=== PATIENT | female | born 1955 | race Caucasian/White ===

== ENCOUNTER 2018-04-25 20:15 | Inpatient (IN) | payer MEDICARE, OTHER ==
[2018-04-25] MEDS ORDERED: ACETAMINOPHEN TAB 500 MG TAB PO STA (20:31)
--- NOTE | 2018-04-25 21:07 | ED ---
Neuro HPI - General Chief Complaint: Neuro Symptoms/Deficit Stated Complaint: Stroke symtoms Time Seen by Provider: 04/25/18 20:30 Source: patient Mode of arrival: wheelchair Limitations: no limitations - History of Present Illness Is the patient presenting with stroke symptoms?: Yes Last Known Well Date: 04/24/18 Last Known Well Time: 20:00 Onset/Timin -: days(s) Initial Comments: Is a 63-year-old female who presents emergency department for left-sided weakness and vision changes. She states that last night around 8 PM she fell and that is when she first noticed the symptoms. She states that she has left upper and lower extremity weakness and also numbness. She states that she also can't see out of the left side of her visual field. She states the symptoms have been persistent throughout today so she decided come emergency department for evaluation. The patient does admit to a mild headache as well. She denies any nausea or vomiting. No slurred speech or difficulty with swallowing. States that she does not have a history of stroke. She states that she has a history of hypertension however is untreated. She is a smoker. No other acute complaints. - Related Data Home Medications: Home Medications Medication Instructions Recorded Confirmed No Known Home Medications 04/25/18 04/25/18 Allergies/Adverse Reactions: Allergies Allergy/AdvReac Type Severity Reaction Status Date / Time Sulfa (Sulfonamide Allergy Unknown Verified 04/25/18 20:52 Antibiotics) Review of Systems ROS Statement: Those systems with pertinent positive or pertinent negative responses have been documented in the HPI. ROS Other: All systems not noted in ROS Statement are negative. General Exam - General Exam Comments Initial Comments: Constitutional: Awake alert Appears comfortable Head: Normocephalic atraumatic Eyes: no conjunctival injection No scleral icterus EOMI, pupils are 4 mm reactive bilaterally, the patient has a left-sided hemianopsia Neck: No JVD Supple Heart: Regular rate rhythm normal S1-S2 no murmurs Lungs: Clear to auscultation bilaterally No wheezing No rales Abdomen: Soft nondistended nontender Extremities: Non edematous DP pulses intact Radial pulses intact Neuro: A&Ox3, left-sided hemianopsia, the rest of her cranial nerves are grossly intact, 2 out of 5 strength in left upper extremity and 3-4-5 strength in left lower chrie, 5 out of 5 strength in upper and lower right extremity. Decreased sensation reported to left upper and lower extremity, there does appear to be some ataxia with finger to nose and heel to edouard testing however this could be due to weakness Psych: Appropriate mood and affect Limitations: no limitations Stroke MDM - Lab Data Result diagrams: 04/25/18 20:20 04/25/18 20:20 Lab Results 04/25/18 04/25/18 04/25/18 Range/Units 20:20 20:20 20:20 WBC 8.4 (3.8-10.6) k/uL RBC 4.76 (3.80-5.40) m/uL Hgb 14.2 (11.4-16.0) gm/dL Hct 43.5 (34.0-46.0) % MCV 91.4 (80.0-100.0) fL MCH 29.9 (25.0-35.0) pg MCHC 32.7 (31.0-37.0) g/dL RDW 13.1 (11.5-15.5) % Plt Count 215 (150-450) k/uL Neutrophils % 52 % Lymphocytes % 37 % Monocytes % 7 % Eosinophils % 2 % Basophils % 0 % Neutrophils # 4.4 (1.3-7.7) k/uL Lymphocytes # 3.1 (1.0-4.8) k/uL Monocytes # 0.6 (0-1.0) k/uL Eosinophils # 0.2 (0-0.7) k/uL Basophils # 0.0 (0-0.2) k/uL PT (9.0-12.0) sec INR (<1.2) APTT (22.0-30.0) sec Sodium 140 (137-145) mmol/L Potassium 5.1 (3.5-5.1) mmol/L Chloride 112 H (98-107) mmol/L Carbon Dioxide 17 L (22-30) mmol/L Anion Gap 11 mmol/L BUN 17 (7-17) mg/dL Creatinine 1.10 H (0.52-1.04) mg/dL Est GFR (CKD-EPI)AfAm 61 (>60 ml/min/1.73 sqM) Est GFR (CKD-EPI)NonAf 53 (>60 ml/min/1.73 sqM) Glucose 107 H (74-99) mg/dL Calcium 9.7 (8.4-10.2) mg/dL Total Bilirubin 0.9 (0.2-1.3) mg/dL AST 22 (14-36) U/L ALT 27 (9-52) U/L Alkaline Phosphatase 78 (38-126) U/L Total Creatine Kinase 52 (30-135) U/L CK-MB (CK-2) 0.3 (0.0-2.4) ng/mL CK-MB (CK-2) Rel Index 0.6 Troponin I <0.012 (0.000-0.034) ng/mL Total Protein 7.2 (6.3-8.2) g/dL Albumin 4.4 (3.5-5.0) g/dL 04/25/18 Range/Units 20:20 WBC (3.8-10.6) k/uL RBC (3.80-5.40) m/uL Hgb (11.4-16.0) gm/dL Hct (34.0-46.0) % MCV (80.0-100.0) fL MCH (25.0-35.0) pg MCHC (31.0-37.0) g/dL RDW (11.5-15.5) % Plt Count (150-450) k/uL Neutrophils % % Lymphocytes % % Monocytes % % Eosinophils % % Basophils % % Neutrophils # (1.3-7.7) k/uL Lymphocytes # (1.0-4.8) k/uL Monocytes # (0-1.0) k/uL Eosinophils # (0-0.7) k/uL Basophils # (0-0.2) k/uL PT 9.5 (9.0-12.0) sec INR 1.0 (<1.2) APTT 18.7 L (22.0-30.0) sec Sodium (137-145) mmol/L Potassium (3.5-5.1) mmol/L Chloride (98-107) mmol/L Carbon Dioxide (22-30) mmol/L Anion Gap mmol/L BUN (7-17) mg/dL Creatinine (0.52-1.04) mg/dL Est GFR (CKD-EPI)AfAm (>60 ml/min/1.73 sqM) Est GFR (CKD-EPI)NonAf (>60 ml/min/1.73 sqM) Glucose (74-99) mg/dL Calcium (8.4-10.2) mg/dL Total Bilirubin (0.2-1.3) mg/dL AST (14-36) U/L ALT (9-52) U/L Alkaline Phosphatase (38-126) U/L Total Creatine Kinase (30-135) U/L CK-MB (CK-2) (0.0-2.4) ng/mL CK-MB (CK-2) Rel Index Troponin I (0.000-0.034) ng/mL Total Protein (6.3-8.2) g/dL Albumin (3.5-5.0) g/dL - NIH Stroke Scale 1a. Level of Consciousness: (0) alert 1b. LOC Questions: (0) answers correctly 1c. LOC Commands: (0) performs tasks correctly 2. Best Gaze: (0) normal 3. Visual: (2) complete hemianopia 4. Facial Palsy: (0) normal symmetrical movement 5a. Motor Arm Left: (2) some gravity effort 5b. Motor Arm Right: (0) no drift 6a. Motor Leg Left: (1) drift 6b. Motor Leg Right: (0) no drift 7. Limb Ataxia: (2) present 2 limbs 8. Sensory: (1) mild/moderate sensory loss 9. Best Language: (0) no aphasia 10. Dysarthria: (0) normal 11. Extinction/Inattention: (0) no abnormality NIH Score total: 8 - Thrombolytic Inclusion/Exclusion Thrombolytic Exclusion Criteria: Symptom Onset > 3 Hours - Medical Decision Making This is a 63-year-old female who presents emergency department for left-sided hemianopsia and left-sided weakness. The patient was found to have an infarct in the right posterior cerebral artery territory. The patient was outside the window for TPA as the last known normal was last night at 8 PM. No evidence for large vessel occlusion and CTA. Patient will be admitted for further workup. Patient was given aspirin emergency department. Dr. Carrillo accepts the admission. Past Medical History Past Medical History: Hypertension History of Any Multi-Drug Resistant Organisms: None Reported Past Surgical History: No Surgical Hx Reported Past Psychological History: No Psychological Hx Reported Smoking Status: Current every day smoker Past Alcohol Use History: None Reported Past Drug Use History: None Reported Course Vital Signs 04/25/18 20:38 Temperature 98.3 F Pulse Rate 92 Respiratory 18 Rate Blood Pressure 153/77 O2 Sat by Pulse 97 Oximetry - Reevaluation(s) Reevaluation #1: 04/25/18 21:08 EKG showing normal sinus rhythm with a rate of 91. No abnormal ST segment changes or T-wave inversions. QTC is 484. Other intervals normal. No ectopy. Disposition Clinical Impression: Acute ischemic stroke Disposition: ADMITTED IP TO THIS HOSP Condition: Stable
[2018-04-25 21:18] LABS: Basophils % (A) 0 %; Eosinophils # (A) 0.2 k/uL (0-0.7); Eosinophils % (A) 2 %; HCT 43.5 % (34.0-46.0); HGB 14.2 gm/dL (11.4-16.0); Lymphocytes # (A) 3.1 k/uL (1.0-4.8); Lymphocytes % (A) 37 %; MCH 29.9 pg (25.0-35.0); MCHC 32.7 g/dL (31.0-37.0); MCV 91.4 fL (80.0-100.0); Mean Platelet Volume 10.5; Monocytes # (A) 0.6 k/uL (0-1.0); Monocytes % (A) 7 %; Neutrophils # (A) 4.4 k/uL (1.3-7.7); Neutrophils % (A) 52 %; Platelet Count 215 k/uL (150-450); RBC 4.76 m/uL (3.80-5.40); RDW 13.1 % (11.5-15.5); WBC 8.4 k/uL (3.8-10.6)
[2018-04-25 21:29] LABS: Albumin 4.4 g/dL (3.5-5.0); Calcium 9.7 mg/dL (8.4-10.2); Potassium 5.1 mmol/L (3.5-5.1); Total Bilirubin 0.9 mg/dL (0.2-1.3); Total Protein 7.2 g/dL (6.3-8.2)
[2018-04-25 21:31] LABS: Creatine Kinase 52 U/L (30-135)
[2018-04-25 21:33] LABS: Prothrombin Time 9.5 sec (9.0-12.0)
[2018-04-25 21:44] LABS: Creatine Kinase MB 0.3 ng/mL (0.0-2.4); Troponin I <0.012 ng/mL (0.000-0.034)
[2018-04-25 21:59] LABS: Partial Thromboplastin Time 18.7 sec (22.0-30.0)
[2018-04-25] MEDS ORDERED: ASPIRIN 81 MG PO STA (22:07)
--- NOTE | 2018-04-25 22:25 | CT ---
EXAMINATION TYPE: CT brain wo con DATE OF EXAM: 04/25/2018 COMPARISON: None HISTORY: Left sided weakness and headache since yesterday. CT DLP: 1017.5 mGycm Automated exposure control for dose reduction was used. FINDINGS: There is a 5 x 3 cm area of davis and white matter hypodensity involving the right occipital lobe exte nding into the right temporal lobe consistent with subacute infarct. There is no mass effect. There i s no midline shift. There is no sign of intracranial hemorrhage. The calvarium is intact. IMPRESSION: EVIDENCE OF A SUBACUTE RIGHT POSTERIOR CEREBRAL ARTERY DISTRIBUTION INFARCT. NO HEMORRHAGE.
--- NOTE | 2018-04-25 22:52 | CT ---
EXAMINATION TYPE: CT angio head neck DATE OF EXAM: 04/25/2018 HISTORY: Left sided weakness and headache since yesterday. COMPARISON: CT scan of the left knee. CT DLP: 270.2 mGycm. Automated Exposure Control for Dose Reduction was Utilized. TECHNIQUE: CTA scan of the neck is performed with IV Contrast, patient injected with 65ml mL of Isov ue 370, axial images are obtained, coronal and sagittal reformatted images are reviewed. Three-D joanna nstructed images are created on an independent workstation and reviewed. FINDINGS: There is normal branching pattern of the great vessels on the aortic arch. Left vertebral artery has origin on the arch. Right vertebral artery is larger than the left. There is arterial flow in the com mon internal and external carotid arteries bilaterally. Carotid artery bifurcations appear widely pat ent. There is no evidence of carotid stenosis. There is no evidence of carotid artery aneurysm or dissection. There is arterial flow in the intracra nial internal carotid arteries bilaterally. There is arterial flow in the vertebrobasilar artery syst em. There is arterial flow in the anterior and middle cerebral arteries. There is no mass effect. The re is no evidence of stenosis. There is decreased distal arterial flow in the right posterior cerebral artery compared to the left. There is normal contrast opacification of the venous sinuses. There is no evidence of aneurysm or eleni vascularity. IMPRESSION: Negative CT angiogram of the neck. There is noted a 2 cm cystic area in the right thyroid lobe. The intracranial exam shows decreased arterial distal flow in the right posterior cerebral artery in the area of the posterior cerebral artery cortical infarct seen on the CT scan today..
--- NOTE | 2018-04-25 23:06 | XR ---
EXAMINATION TYPE: XR chest 2V DATE OF EXAM: 04/25/2018 COMPARISON: NONE HISTORY: Weakness TECHNIQUE: Frontal and lateral views of the chest are obtained. FINDINGS: Heart and mediastinum are normal. Lungs are clear. Diaphragm is normal. Bony thorax is int act. There are chest leads. IMPRESSION: No active cardiopulmonary disease.
[2018-04-25 23:51] VITALS: BMI 25.8
[2018-04-25 23:51] LABS: Cholesterol 238 mg/dL (<200); HDL Cholesterol 45 mg/dL (40-60); LDL Cholesterol,Calculated 167 mg/dL (0-99); Triglycerides 132 mg/dL (<150)
--- NOTE | 2018-04-26 00:04 | P.HPIM ---
History of Present Illness H&P Date: 04/25/18 Chief Complaint: Fall and left-sided weakness This is a 63-year-old female without significant past medical history and no regular follow-ups. Patient came to emergency department this evening with complaint of sudden fall the day prior to the admission. Patient states that she was sitting and watching her computer and felt all of a sudden her left leg to be numb. She tried to get up and stretch it up but felt too weak and felt down on the right side. She notices some vision changes in form of vision being hazy and not sharp and then felt that the left arm and left leg numb but has difficulties moving. She denied any headache, nausea, dizziness. Since she hoped that this is going to go away she did not seek immediate medical attention. Next day since she was still feeling weak on the left side and not able to get up she called her granddaughter who brought her to emergency department. Initial CT of the head showed acute right occipital ischemic CVA. Since patient presented more than 24 hours after onset of symptoms no number with tics or intervention was indicated and she was now admitted for further evaluation. She also had CTA of the head and neck did not show any significant stenosis except mild stenosis in the distal part of right cerebral artery. No dissection or aneurysms noted. Patient's symptoms stayed about the same. She did not notice any improvement or worsening. She did have mild headache that resolved with Tylenol. She does not take aspirin. She does not take any medications and does not have any regular follow-up since physician. She smokes about a pack a day. Review of Systems Constitutional: Reports as per HPI Eyes: bilateral as per HPI, bilateral blurred vision Ears, nose, mouth and throat: Reports headache, Denies vertigo Cardiovascular: Reports high blood pressure, Denies chest pain, Denies dyspnea on exertion, Denies edema, Denies palpitations, Denies syncope Respiratory: Denies congestion, Denies cough, Denies dyspnea Gastrointestinal: Denies abdominal pain, Denies change in bowel habits, Denies diarrhea, Denies nausea, Denies vomiting Genitourinary: Denies difficulty voiding, Denies hematuria Musculoskeletal: Reports as per HPI Neurological: Reports as per HPI Psychiatric: Denies anxiety, Denies depression Endocrine: Denies cold intolerance, Denies heat intolerance Hematologic/Lymphatic: Denies easy bleeding Past Medical History Past Medical History: Hypertension History of Any Multi-Drug Resistant Organisms: None Reported Past Surgical History: No Surgical Hx Reported Past Psychological History: No Psychological Hx Reported Smoking Status: Current every day smoker Past Alcohol Use History: None Reported Past Drug Use History: None Reported Medications and Allergies Home Medications Medication Instructions Recorded Confirmed Type No Known Home Medications 04/25/18 04/25/18 History Allergies Allergy/AdvReac Type Severity Reaction Status Date / Time Sulfa (Sulfonamide Allergy Unknown Verified 04/25/18 20:52 Antibiotics) Physical Exam Vitals: Vital Signs Temp Pulse Pulse Resp BP BP Pulse Ox 04/25/18 22:30 97.7 F 62 18 171/79 99 04/25/18 21:33 97.8 F 70 18 166/83 99 04/25/18 20:38 98.3 F 92 18 153/77 97 Intake and Output 04/25/18 04/25/18 04/26/18 14:59 22:59 06:59 Other: Weight 74.8 kg - Constitutional General appearance: cooperative, no acute distress - EENT Eyes: EOMI, PERRLA ENT: no hard of hearing, normal oropharynx, no pharyngeal erythema - Neck Neck: normal ROM - Respiratory Respiratory: bilateral: CTA - Cardiovascular Heart sounds: normal: S1, S2 - Gastrointestinal General gastrointestinal: normal bowel sounds, no organomegaly, no tenderness - Neurologic Left-sided hemiparesis with decreased sensitivity to touch. No clonus or Babinski in the left foot. She has left-sided neglect and ideation to her right Neurologic: focal deficits - Musculoskeletal Musculoskeletal: left sided weakness - Psychiatric Psychiatric: A&O x's 3, appropriate affect, intact judgment & insight Results CBC & Chem 7: 04/25/18 20:20 04/25/18 20:20 Labs: Abnormal Lab Results - Last 24 Hours (Table) 04/25/18 04/25/18 Range/Units 20:20 20:20 APTT 18.7 L (22.0-30.0) sec Chloride 112 H (98-107) mmol/L Carbon Dioxide 17 L (22-30) mmol/L Creatinine 1.10 H (0.52-1.04) mg/dL Glucose 107 H (74-99) mg/dL Assessment and Plan Assessment: 1. Acute ischemic CVA Patient will need formal admission for 2 or more midnightsCVA pathway Neurology consultation Physical and occupational and PMNR consultation Swallowing evaluation Aspirin and statin CT head and neck done Echocardiogram ordered Rule out thromboembolic disease will be monitored on telemetry while in the hospital and may consider having loop recorder an outpatient basis Check A1c and lipid panel Smoking cessation Blood pressure control 2. Elevated blood pressure This could be due to stress or sarah hypertension No treatment for now and continue to monitor 3. Elevated creatinine with hyperchloremic metabolic acidosis Rule out acute or chronic kidney injury We'll obtain urinalysis Repeat creatinine the morning Consider further workup Will need admission 2 or more midnights Patient is a full code Surrogate decision-maker is her granddaughter who is present in the room during the examination Time with Patient: Greater than 30
[2018-04-26] MEDS: HEPARIN SODIUM,PORCINE 5,000 UNIT/ML 1 ML VIAL SQ SCH ×4 (00:30→23:05)
[2018-04-26 03:58] LABS: Appearance,Urine Clear (Clear); Bacteria,Urine Occasional /hpf; Bilirubin,Urine Negative (Negative); Blood,Urine Negative (Negative); Color,Urine Yellow; Glucose,Urine (UA) Negative (Negative); Ketones,Urine Negative (Negative); Leukocyte Esterase,Urine Large (Negative); Mucus,Urine Occasional /hpf; Nitrite,Urine Positive (Negative); PH, Urine 5.5 (5.0-8.0); Protein,Urine 1+ (Negative); RBC,Urine 5 /hpf (0-5); Squamous Epithelial Cell,Urine 11 /hpf (0-4); Urobilinogen,Urine <2.0 mg/dL (<2.0); WBC,Urine 37 /hpf (0-5)
[2018-04-26 04:04] LABS: Specific Gravity,Urine >1.050 (1.001-1.035)
[2018-04-26] MEDS: ACETAMINOPHEN TAB 325 MG TAB PO PRN ×3 (04:08→18:12)
[2018-04-26 08:41] LABS: Calcium 9.2 mg/dL (8.4-10.2); Potassium 3.9 mmol/L (3.5-5.1)
--- NOTE | 2018-04-26 08:54 | ECHOF ---
Referral Reason:Thrombus MEASUREMENTS -------- HEIGHT: 167.6 cm WEIGHT: 76.2 kg BP: 138/68 RVIDd: 2.6 cm (< 3.3) IVSd: 1.2 cm (0.6 - 1.1) LVIDd: 3.5 cm (3.9 - 5.3) LVPWd: 1.0 cm (0.6 - 1.1) IVSs: 1.5 cm LVIDs: 2.4 cm LVPWs: 1.6 cm LA Diam: 3.0 cm (2.7 - 3.8) LAESV Index (A-L): 33.13 ml/m Ao Diam: 3.1 cm (2.0 - 3.7) AV Cusp: 2.0 cm (1.5 - 2.6) MV EXCURSION: 17.766 mm (> 18.000) MV EF SLOPE: 84 mm/s (70 - 150) EPSS: 0.5 cm MV E Car: 0.69 m/s MV DecT: 241 ms MV A Car: 0.77 m/s MV E/A Ratio: 0.90 RAP: 5.00 mmHg RVSP: 27.32 mmHg FINDINGS -------- Sinus rhythm. This was a technically good study. The left ventricular size is normal. There is borderline concentric left ventricular hypertrophy. Overall left ventricular systolic function is normal with, an EF between 60 - 65 %. The right ventricle is normal in size. LA is midly dilated 29-33ml/m2. The right atrium is normal in size. There is mild aortic valve sclerosis. The mitral valve is normal. Mild tricuspid regurgitation present. Right ventricular systolic pressure is normal at < 35 mmHg. Trace/mild (physiologic) pulmonic regurgitation. The aortic root size is normal. Normal inferior vena cava with normal inspiratory collapse consistent with estimated right atrial pre ssure of 5 mmHg. There is no pericardial effusion. CONCLUSIONS -------- 1. Sinus rhythm. 2. This was a technically good study. 3. The left ventricular size is normal. 4. There is borderline concentric left ventricular hypertrophy. 5. Overall left ventricular systolic function is normal with, an EF between 60 - 65 %. 6. The right ventricle is normal in size. 7. LA is midly dilated 29-33ml/m2. 8. The right atrium is normal in size. 9. There is mild aortic valve sclerosis. 10. The mitral valve is normal. 11. Mild tricuspid regurgitation present. 12. Right ventricular systolic pressure is normal at < 35 mmHg. 13. Trace/mild (physiologic) pulmonic regurgitation. 14. The aortic root size is normal. 15. Normal inferior vena cava with normal inspiratory collapse consistent with estimated right atrial pressure of 5 mmHg. 16. There is no pericardial effusion. PHARMACY CLINICAL COORDINATOR: Parris Rodgers RDCS
[2018-04-26] MEDS ORDERED: ASPIRIN 300 MG SUPP RECTAL SCH (09:00)
[2018-04-26] MEDS: ASPIRIN 325 MG TAB PO SCH (09:07)
--- NOTE | 2018-04-26 11:54 | P.PN ---
Subjective Progress Note Date: 04/26/18 Principal diagnosis: Stroke Patient is doing relatively well when I saw her this morning. She still complaining of some weakness on her left side. No residual neurological focal deficits otherwise. Objective - Vital Signs Vital signs: Vital Signs Temp 97.8 F 04/26/18 10:41 Pulse 70 04/26/18 10:41 Resp 17 04/26/18 10:41 BP 140/72 04/26/18 10:41 Pulse Ox 94 L 04/26/18 10:41 Intake & Output 04/25/18 04/26/18 04/26/18 18:59 06:59 18:59 Intake Total 600 120 Balance 600 120 Weight 76.5 kg Intake: Oral 600 120 Other: Voiding Method Bedpan Bedpan # Voids 1 - Exam General: The patient is awake and alert, in no distress Eye: there is normal conjunctiva bilaterally. Neck: The neck is supple, there is no JVD. Cardiovascular: Normal S1-S2, no S3-S4, no murmurs. Respiratory: Lungs clear to auscultation bilaterally Gastrointestinal: Abdomen is soft, nontender Musculoskeletal: There is no pedal edema. Neurological:. Speech is normal. Skin: Skin is warm and dry - Labs CBC & Chem 7: 04/25/18 20:20 04/26/18 08:20 Labs: Abnormal Lab Results - Last 24 Hours (Table) 04/25/18 04/25/18 04/25/18 Range/Units 03:30 20:20 20:20 APTT 18.7 L (22.0-30.0) sec Chloride 112 H (98-107) mmol/L Carbon Dioxide 17 L (22-30) mmol/L BUN (7-17) mg/dL Creatinine 1.10 H (0.52-1.04) mg/dL Glucose 107 H (74-99) mg/dL Cholesterol (<200) mg/dL LDL Cholesterol, Calc (0-99) mg/dL Ur Specific [place] >1.050 H (1.001-1.035) Urine Protein 1+ H (Negative) Urine Nitrite Positive H (Negative) Ur Leukocyte Esterase Large H (Negative) Urine WBC 37 H (0-5) /hpf Ur Squamous Epith Cells 11 H (0-4) /hpf Urine Bacteria Occasional H (None) /hpf Urine Mucus Occasional H (None) /hpf 04/25/18 04/26/18 Range/Units 20:20 08:20 APTT (22.0-30.0) sec Chloride 109 H (98-107) mmol/L Carbon Dioxide (22-30) mmol/L BUN 25 H (7-17) mg/dL Creatinine 1.10 H (0.52-1.04) mg/dL Glucose 114 H (74-99) mg/dL Cholesterol 238 H (<200) mg/dL LDL Cholesterol, Calc 167 H (0-99) mg/dL Ur Specific [place] (1.001-1.035) Urine Protein (Negative) Urine Nitrite (Negative) Ur Leukocyte Esterase (Negative) Urine WBC (0-5) /hpf Ur Squamous Epith Cells (0-4) /hpf Urine Bacteria (None) /hpf Urine Mucus (None) /hpf Assessment and Plan Assessment: 1. Subacute stroke involving the right stereo cerebral artery, patient was started on aspirin daily. Awaiting neurology evaluation. CT angiogram of the neck was unremarkable. Echocardiogram showed preserved ejection fraction and no valvular abnormalities. Patient started on Lipitor 80 mg daily. PT/OT/ speech pathology evaluation requested. A1c and TSH pending. We will continue telemetry monitoring. Neuro check. 2. Mixed hyperlipidemia, counseled regarding lifestyle modification and exercise. Started on Lipitor daily. Repeat fasting lipid profile in 3 months. 3. Tobacco abuse, counseled extensively to quit. She verbalized understanding. 4. Elevated blood pressure, no known history of hypertension. We'll continue to monitor for now. Consider starting hydrochlorothiazide is in the next day or 2 5. DVT prophylaxis with subcu heparin Today, I reviewed her medication list and lab work results. Awaiting neurology evaluation. May consider inpatient rehab if patient qualified. Patient was updated about her current condition. All of her questions answered to her satisfaction.
--- NOTE | 2018-04-26 12:05 | P.CONS ---
History of Present Illness - Chief Complaint Gait disturbance, left hemiplegia - History of Present Illness I had the opportunity to see patient for inpatient rehab consultation with regard to gait disturbance. She is admitted to [facility] April 25 with history of fall and left-sided weakness. Chest x-ray negative. Angiogram CT negative. Head CT demonstrates subacute infarct right posterior cerebral artery distribution. PT reports moderate assistance for bed mobility and minimal assist for transfers. OT and speech prescribed. Previous functional history as elicited patient: 63-year-old right-handed white female who is and lives in a first-floor apartment alone. Retired. Describes independent with own cooking, laundry, driving, standing shower and gait without device. Does not have regular PCP. Admits to smoking 15 cigarettes per day denies alcohol. Family history of hypertension and cancer in father. Review of Systems Review of systems: ENT: Denies sneezes or discharge. Eyes: Denies discharge or photophobia. Cardiac: Denies chest pain or palpitation. Pulmonary: Denies cough or shortness of breath. Breast: Denies discharge or lumps. Gastrointestinal: Denies nausea, emesis, constipation, diarrhea. Genitourinary: Denies discharge or frequency. Musculoskeletal: Denies muscle or bone aches. Neurologic: Sided weakness and numbness. Endocrine: Denies shakes or sweats. Oncology: Denies cancers. Dermatologic: Denies rash, itching, pruritus. ALLERGY/immunology: Denies sneezes, rashes. Past Medical History Past Medical History: Hypertension History of Any Multi-Drug Resistant Organisms: None Reported Past Surgical History: No Surgical Hx Reported Past Anesthesia/Blood Transfusion Reactions: No Reported Reaction Additional Past Anesthesia/Blood Transfusion Reaction / Comm: pt has never received either Past Psychological History: No Psychological Hx Reported Smoking Status: Current every day smoker Past Alcohol Use History: None Reported Past Drug Use History: None Reported - Past Family History Mother Family Medical History: Congestive Heart Failure (CHF), CVA/TIA Additional Family Medical History / Comment(s): Mother of CHF at the age of 83. Father Family Medical History: Cancer, CVA/TIA, Hypertension Additional Family Medical History / Comment(s): Pt's father at the age of 77, colon cancer. Medications and Allergies Home Medications Medication Instructions Recorded Confirmed Type No Known Home Medications 04/25/18 04/25/18 History Allergies Allergy/AdvReac Type Severity Reaction Status Date / Time Sulfa (Sulfonamide Allergy Unknown Verified 04/25/18 20:52 Antibiotics) Physical Exam Vitals: Vital Signs Temp Pulse Pulse Resp BP BP Pulse Ox 04/26/18 10:41 97.8 F 70 17 140/72 94 L 04/26/18 09:05 74 18 140/69 94 L 04/26/18 08:41 74 140/69 04/26/18 08:00 74 18 04/26/18 06:41 76 16 138/68 95 04/26/18 04:41 71 16 138/66 94 L 04/26/18 03:51 85 16 04/26/18 02:41 85 16 143/69 95 04/26/18 01:41 72 16 144/73 94 L 04/26/18 00:41 68 16 130/72 93 L 04/25/18 23:41 65 16 144/72 96 04/25/18 22:46 99.2 F 65 16 164/74 99 04/25/18 22:30 97.7 F 62 18 171/79 99 04/25/18 21:33 97.8 F 70 18 166/83 99 04/25/18 20:38 98.3 F 92 18 153/77 97 Intake and Output 04/25/18 04/26/18 04/26/18 22:59 06:59 14:59 Intake Total 600 120 Output Total 150 Balance 600 -30 Intake: Oral 600 120 Output: Urine 150 Other: Voiding Method Bedpan Bedpan # Voids 1 1 # Bowel Movements 0 Weight 72.575 kg 76.5 kg Skin: Good color, texture, turgor. General: Medium build and comfortable appearance. Head: Normocephalic, atraumatic. Eyes: Symmetric. Pupils equal round. Ears: Symmetric. Hearing within normal limits. Mouth: Clear. Neck: Supple. Carotid without bruit. Cardiac: Regular rate and rhythm. Lungs: Clear anteriorly and posteriorly. Abdomen: Soft active nontender. Extremities: Normal tone. Neurological: Mental status: Alert, cooperative, pleasant. Cranial nerves: Symmetric facial tone and trapezius. Motor: Normal strength and isolation right arm and leg. Left leg demonstrates active movement throughout and, in synergy predominant. Left arm and poor flexion synergy. Sensation: Intact right side and depressed left side, especially arm. DTRs: Symmetric and equal throughout. Mobility: Would require assistance for bed mobility. Results CBC & Chem 7: 04/25/18 20:20 04/26/18 08:20 Labs: Abnormal Lab Results - Last 24 Hours (Table) 04/25/18 04/25/18 04/25/18 Range/Units 03:30 20:20 20:20 APTT 18.7 L (22.0-30.0) sec Chloride 112 H (98-107) mmol/L Carbon Dioxide 17 L (22-30) mmol/L BUN (7-17) mg/dL Creatinine 1.10 H (0.52-1.04) mg/dL Glucose 107 H (74-99) mg/dL Cholesterol (<200) mg/dL LDL Cholesterol, Calc (0-99) mg/dL Ur Specific [place] >1.050 H (1.001-1.035) Urine Protein 1+ H (Negative) Urine Nitrite Positive H (Negative) Ur Leukocyte Esterase Large H (Negative) Urine WBC 37 H (0-5) /hpf Ur Squamous Epith Cells 11 H (0-4) /hpf Urine Bacteria Occasional H (None) /hpf Urine Mucus Occasional H (None) /hpf 04/25/18 04/26/18 Range/Units 20:20 08:20 APTT (22.0-30.0) sec Chloride 109 H (98-107) mmol/L Carbon Dioxide (22-30) mmol/L BUN 25 H (7-17) mg/dL Creatinine 1.10 H (0.52-1.04) mg/dL Glucose 114 H (74-99) mg/dL Cholesterol 238 H (<200) mg/dL LDL Cholesterol, Calc 167 H (0-99) mg/dL Ur Specific [place] (1.001-1.035) Urine Protein (Negative) Urine Nitrite (Negative) Ur Leukocyte Esterase (Negative) Urine WBC (0-5) /hpf Ur Squamous Epith Cells (0-4) /hpf Urine Bacteria (None) /hpf Urine Mucus (None) /hpf Chest x-ray: report reviewed (Chest x-ray negative.) CT Scan - head: report reviewed (Head CT with infarct subacute right ASSISTANT PURCHASING MANAGER. Angiogram CT negative.) Assessment and Plan (1) Acute ischemic stroke Current Visit: Yes Status: Acute Code(s): I63.9 - CEREBRAL INFARCTION, UNSPECIFIED SNOMED Code(s): 928129217 Plan: Patient: 1. Gait disturbance. 2. Acute right ASSISTANT PURCHASING MANAGER infarct resultant left magali-pierces. 3. Hypertension. Comments and plan: At this time PT, OT, SEAM TAPER MACHINE ordered. Discussed possibility of inpatient rehab with patient and she seems agreeable, if necessary. Note that she doesn't have regular physician and she also lives alone.
[2018-04-26] MEDS: SODIUM CHLORIDE 0.9% 1,000 ML IV SCH (17:13)
[2018-04-26] MEDS: ATORVASTATIN 80 MG TAB PO SCH (20:20)
--- NOTE | 2018-04-26 21:26 | CONS ---
CONSULTATION DATE OF CONSULTATION: 04/26/2018. CHIEF COMPLAINT: Stroke. HISTORY OF PRESENT ILLNESS: Mrs. Cuadra is a 63-year-old female who is being evaluated by the neurology service per the request of Dr. Seymour for a stroke. The patient was brought into [facility] Emergency Room after she noticed a sudden onset of left-sided numbness and visual deficits. The patient states that she was unable to see anything on the left side of her visual field. In the emergency room, a CT scan of the brain was done, which showed evidence of a subacute ischemic stroke involving right occipital lobe. A CT angiogram of the brain was done, which showed decreased flow through the right posterior cerebral artery. Her CT angiogram of the neck showed no significant stenosis, but there was an incidental finding of thyroid cysts. Her lipid panel showed dyslipidemia with an LDL of 167. The patient was started on aspirin and Lipitor and admitted for further workup and management. At the time of my evaluation, she is lying in her bed and appears to be in no acute distress. She denies any changes in her neurological symptoms. PAST MEDICAL HISTORY: Hypertension. SOCIAL HISTORY: The patient is a current every day smoker. She denies any alcohol or drug use. FAMILY HISTORY: Noncontributory. PAST SURGICAL HISTORY: None. HOME MEDICATIONS: Reviewed in the chart. ALLERGIES: No known drug allergies. REVIEW OF SYSTEMS: CONSTITUTIONAL: Negative. EYES: As mentioned above. ENT: Negative. CARDIOVASCULAR: Negative. RESPIRATORY: Negative. NEUROLOGICAL: As mentioned above. DERMATOLOGICAL: Negative. ENDOCRINE: Negative. PSYCHIATRIC: Negative. MUSCULOSKELETAL: Negative. PHYSICAL EXAM: Vital signs show a temperature of 97.3, pulse 72, respiration 18, blood pressure 138/64. GENERAL APPEARANCE: The patient is a female who appears to be in no acute distress. HEENT: Normocephalic, atraumatic. is seen. Neck is supple with no masses felt. CARDIOVASCULAR: Regular rate and rhythm. ABDOMEN: Nontender, nondistended. Extremities showed no edema or clubbing. NEUROLOGICAL: The patient is awake and oriented x3. Speech and language are normal. Strength is full in all 4 extremities. Sensory showed diminished light touch sensation on the left upper and lower extremities compared to the right. Cranial nerve testing showed a left visual field cut. No tremors or seizure-like activity is seen. IMPRESSION: 1. Acute ischemic stroke, right occipital lobe. 2. Left visual field cut. 3. Left-sided numbness. 4. Dyslipidemia. 5. Hypertension. 6. Tobacco dependence. RECOMMENDATION: The patient does appear to have suffered an acute ischemic stroke as mentioned above. She continues to have a left visual field cut consistent with her right occipital lobe stroke. On my examination, she does have a significant sensory deficit on the left side. There was concern for thalamic involvement, given the CT angiogram of the brain finding. For this reason, I will order an MRI of the brain without contrast. Continue aspirin and Lipitor. I will order an EEG and serum homocystine level. Continue IV hydration as tolerated. The patient was counseled on tobacco cessation. I do recommend further workup regarding her thyroid cysts as mentioned above. Thank you for allowing me to participate in the care of your patient. If you have any questions, please feel free to contact me. ILSA / CARSON: [id number] /
--- NOTE | 2018-04-26 22:26 | MR ---
EXAMINATION TYPE: MR brain wo con DATE OF EXAM: 04/26/2018 COMPARISON: Head CT scan yesterday HISTORY: Left side weakness, CVA Standard multiplanar, multisequence MRI departmental protocol Multiplanar, multisequence images of the brain were acquired. Diffusion weighted imaging was performe d. FINDINGS: There is a 9X5 cm area of increased signal on the T2 and FLAIR images involving the medial right occipital lobe extending into the right posterior temporal lobe and the posterior right thalamu s. This is consistent with subacute infarct. There is no midline shift. I see no underlying mass. The re is no evidence of intracranial hemorrhage. The brainstem appears intact. Corpus callosum appears n ormal. Sella turcica is normal. On the FLAIR images there are scattered white matter high signal foci in the subcortical region of eben th cerebral hemispheres. These measure up to 5 mm and total number is less than 10. IMPRESSION: Large subacute right posterior cerebral artery distribution infarct. No mass effect. White matter foci probably related to chronic small vessel ischemia. No change compared to CT scan ye day.
[2018-04-27] MEDS: ACETAMINOPHEN TAB 325 MG TAB PO PRN (00:33)
[2018-04-27] MEDS: SODIUM CHLORIDE 0.9% 1,000 ML IV SCH (01:38)
[2018-04-27] MEDS ORDERED: amLODIPine 5 MG TAB PO STA (04:05)
[2018-04-27 07:26] LABS: Calcium 9.8 mg/dL (8.4-10.2); Potassium 4.1 mmol/L (3.5-5.1)
[2018-04-27] MEDS: HEPARIN SODIUM,PORCINE 5,000 UNIT/ML 1 ML VIAL SQ SCH ×2 (07:38→15:27)
[2018-04-27] MEDS: ASPIRIN 325 MG TAB PO SCH (07:39)
[2018-04-27] MEDS ORDERED: ONDANSETRON 4 MG/2 ML VIAL IVP PRN (08:49)
--- NOTE | 2018-04-27 13:48 | P.PN ---
Subjective Progress Note Date: 04/27/18 Principal diagnosis: Stroke Patient is doing well today. No acute events overnight. Objective - Vital Signs Vital signs: Vital Signs Temp 97.6 F 04/27/18 07:42 Pulse 75 04/27/18 12:00 Resp 18 04/27/18 12:00 BP 117/69 04/27/18 12:00 Pulse Ox 95 04/27/18 12:00 Intake & Output 04/26/18 04/27/18 04/27/18 18:59 06:59 18:59 Intake Total 360 900 340 Output Total 150 150 Balance 210 900 190 Weight 75.5 kg Intake: Oral 360 900 340 Output: Urine 150 150 Other: Voiding Method Bedpan Bedpan Bedpan # Voids 1 1 1 # Bowel Movements 0 - Exam General: The patient is awake and alert, in no distress Eye: there is normal conjunctiva bilaterally. Neck: The neck is supple, there is no JVD. Cardiovascular: Normal S1-S2, no S3-S4, no murmurs. Respiratory: Lungs clear to auscultation bilaterally Gastrointestinal: Abdomen is soft, nontender Musculoskeletal: There is no pedal edema. Neurological:. Speech is normal. Skin: Skin is warm and dry - Labs CBC & Chem 7: 04/25/18 20:20 04/27/18 06:36 Labs: Abnormal Lab Results - Last 24 Hours (Table) 04/27/18 Range/Units 06:36 Chloride 111 H (98-107) mmol/L BUN 18 H (7-17) mg/dL Glucose 103 H (74-99) mg/dL Assessment and Plan Assessment: 1. Subacute stroke involving the right posterior cerebral artery/right occipital lobe noted on MRI of the brain, patient was started on aspirin daily. She was seen and evaluated by neurology. CT angiogram of the neck was unremarkable. Echocardiogram showed preserved ejection fraction and no valvular abnormalities. Patient started on Lipitor 80 mg daily. PT/OT/speech pathology evaluation requested. A1c and TSH within normal range. We will continue telemetry monitoring. 2. Mixed hyperlipidemia, counseled regarding lifestyle modification and exercise. Started on Lipitor daily. Repeat fasting lipid profile in 3 months. 3. Tobacco abuse, counseled extensively to quit. She verbalized understanding. 4. Elevated blood pressure, no known history of hypertension. Blood pressure remained elevated. I will start hydrochlorothiazide 12.5 mg daily. We'll continue to monitor for now. 5. DVT prophylaxis with subcu heparin Today, I reviewed her medication list and lab work results. Awaiting EEG to be done today. Patient was seen by physical medicine and plan to discharge tomorrow to inpatient rehab awaiting bed availability.
--- NOTE | 2018-04-27 15:09 | P.PN ---
Subjective Progress Note Date: 04/27/18 Principal diagnosis: Subacute stroke Neurology is following on a 63-year-old female for acute/subacute stroke. Patient was brought to the emergency room after sudden onset of left-sided numbness and visual deficits. Patient was unable to see anything on the left side of her visual field. CT of the brain was done which showed evidence of subacute ischemic stroke involving right occipital lobe. CT angiogram of the brain was done which noted decreased flow throughout the right posterior cerebral artery. CT angiogram of the neck showed significant stenosis but there was incidental finding of thyroid cysts. Lipid panel showed dyslipidemia with LDL of 167. Patient was started on aspirin and Lipitor in the ED and further workup ordered. Patient states today she is feeling approximately 10% improved. She states that she is able to see items on the wall including the clock but cannot differentiate the numbers clearly. She also states that her sensation of disequilibrium is also improved. Patient denies any other new onset neurological status changes. On contact, the patient was sitting in bedside chair, alert and oriented 3 and in no acute distress. Objective - Vital Signs Vital signs: Vital Signs Temp 97.6 F 04/27/18 07:42 Pulse 75 04/27/18 12:00 Resp 18 04/27/18 12:00 BP 117/69 04/27/18 12:00 Pulse Ox 95 04/27/18 12:00 Intake & Output 04/26/18 04/27/18 04/27/18 18:59 06:59 18:59 Intake Total 360 900 340 Output Total 150 150 Balance 210 900 190 Weight 75.5 kg Intake: Oral 360 900 340 Output: Urine 150 150 Other: Voiding Method Bedpan Bedpan Bedpan # Voids 1 1 1 # Bowel Movements 0 - Exam Gen. appearance: Alert, in no apparent distress Head: Atraumatic normocephalic, normal inspection Eyes: Well appearance, PERRL, EOMI. absent: Scleral icterus, conjunctival injection, nystagmus, periorbital swelling. Ear nose and throat: Normal exam, mucous membranes moist Neck: Normal inspection. Absent tenderness, lymphadenopathy Respiratory: No increased work of breathing. Cardiovascular: Regular rate and rhythm GI/abdominal: Nontender, no guarding Neurological: Awake, Alert and oriented 3, cranial nerves II through XII intact , strength is full in the right upper and lower extremity, left upper extremity 4/5, left lower extremity 4+/5, no seizure activity noted on physical exam. Psychological: Mood and affect appropriate setting - Labs CBC & Chem 7: 04/25/18 20:20 04/27/18 06:36 Labs: Abnormal Lab Results - Last 24 Hours (Table) 04/27/18 Range/Units 06:36 Chloride 111 H (98-107) mmol/L BUN 18 H (7-17) mg/dL Glucose 103 H (74-99) mg/dL Assessment and Plan (1) Acute ischemic stroke Current Visit: Yes Status: Acute Code(s): I63.9 - CEREBRAL INFARCTION, UNSPECIFIED SNOMED Code(s): 303511785 (2) Visual changes Current Visit: Yes Status: Acute Code(s): H53.9 - UNSPECIFIED VISUAL DISTURBANCE SNOMED Code(s): 253775773 (3) Left sided numbness Current Visit: Yes Status: Acute Code(s): R20.0 - ANESTHESIA OF SKIN SNOMED Code(s): 44689458 (4) Hyperlipidemia Current Visit: Yes Status: Acute Code(s): E78.5 - HYPERLIPIDEMIA, UNSPECIFIED SNOMED Code(s): 92200887 (5) Tobacco dependence Current Visit: Yes Status: Acute Code(s): F17.200 - NICOTINE DEPENDENCE, UNSPECIFIED, UNCOMPLICATED SNOMED Code(s): 16301692 Plan: 1. Subacute ischemic strokeright posterior cerebral artery, right occipital lobe. Patient does have physical exam findings as well as imaging documenting subacute stroke as noted above. Continue antiplatelet therapy with aspirin as previously [id number] mg daily Continue neuro checks as ordered Advise Neurology with any neurological status changes immediately Serum homocystine level pending Continue DVT prophylaxis EEG pending as noted below 2. Visual changes: Patient had left visual field cuts consistent with #1 above. Etiology likely related to #1 above. EEG pending 3. Left-sided numbness and weakness On physical exam, patient did have some left upper extremity weakness also consistent with #1 above. Consult/continue PT OT 4. Hyperlipidemia: Cholesterol 238 LDL 167 Continue Lipitor 80 mg by mouth daily at bedtime STATUS: Neurology will continue to follow and provide updates as needed or warranted. Feel free to contact our office with any questions. I discussed the patients history, physical exam, diagnostic testing, lab work and imaging with Dr Frye prior to implementing the plan above. He agrees with the plan as implemented prior to implementation.
[2018-04-27] MEDS: HYDROCHLOROTHIAZIDE 12.5 MG CAP PO SCH (15:29)
--- NOTE | 2018-04-27 18:53 | EEG ---
ELECTROENCEPHALOGRAM REPORT DATE OF SERVICE: 04/27/2018. REASON FOR TESTING: Stroke. DESCRIPTION OF THE PROCEDURE: This EEG was performed using a 21 channel digital electroencephalograph, following international 10-20 system. DESCRIPTION OF THE RECORDING: From the beginning of the tracing, and with patient's eyes closed, the background rhythm was mostly consisting of 9 Hz alpha frequency in the posterior occipital leads. No obvious asymmetry is seen. Photic stimulation was performed with a good driving response seen. No pathological waves were elicited. Hyperventilation was not performed. The patient does reach stage II of sleep during the tracing and occasional sleep spindles are seen. No epileptiform discharges were seen. Her EKG lead showed a regular rate and rhythm. INTERPRETATION: This asleep and awake EEG can be considered within normal limits. There was no asymmetry seen. No epileptiform discharges were noticed. The absence of epileptiform discharges does not rule out the diagnosis of epilepsy; therefore, clinical correlation is recommended. MMSUSAN / IJN: [id number] /
[2018-04-27] MEDS: ATORVASTATIN 80 MG TAB PO SCH (21:20)
[2018-04-28] MEDS ORDERED: HEPARIN SODIUM,PORCINE 5,000 UNIT/ML 1 ML VIAL ONE (00:18)
[2018-04-28] MEDS: HEPARIN SODIUM,PORCINE 5,000 UNIT/ML 1 ML VIAL SQ SCH ×2 (04:37→08:23)
[2018-04-28 06:41] LABS: Calcium 9.5 mg/dL (8.4-10.2); Potassium 4.2 mmol/L (3.5-5.1)
[2018-04-28] MEDS: HYDROCHLOROTHIAZIDE 12.5 MG CAP PO SCH (08:23)
[2018-04-28] MEDS: ASPIRIN 325 MG TAB PO SCH (08:23)
[2018-04-28 10:10] VITALS: RESP 18
--- NOTE | 2018-04-28 11:47 | P.DS ---
Providers Date of admission: 04/25/18 22:32 Expected date of discharge: 04/28/18 Attending physician: Sylvester Seymour MD Consults: 04/26/18 08:53 Consult Physician Urgent Consulting Provider: Robert Frye Consult Reason/Comments: CVA Do you want consulting provider notified?: Yes 04/26/18 10:44 Consult Physician Routine Consulting Provider: Jovon Kang Consult Reason/Comments: eval for inpatient rehab Do you want consulting provider notified?: Yes Primary care physician: Stated None Hospital Course: 1. Subacute stroke involving the right posterior cerebral artery/right occipital lobe noted on MRI of the brain, patient was started on aspirin daily. She was seen and evaluated by neurology. CT angiogram of the neck was unremarkable. Echocardiogram showed preserved ejection fraction and no valvular abnormalities. Patient started on Lipitor 80 mg daily. Evaluated by PT/OT/speech pathology. A1c and TSH within normal range. EEG was normal 2. Mixed hyperlipidemia, counseled regarding lifestyle modification and exercise. Started on Lipitor daily. Repeat fasting lipid profile in 3 months. 3. Tobacco abuse, counseled extensively to quit. She verbalized understanding. 4. Elevated blood pressure, no known history of hypertension. Blood pressure remained elevated. Started on hydrochlorothiazide 12.5 mg daily. 5. Thyroid cyst, noted on CTs angiogram of the neck. Thyroid function tests within normal range. Consider follow-up as an outpatient with ultrasound 6.Physical debility: Continue physical therapy as tolerated with residual left- sided weakness secondary to recent stroke. Plan to discharge to inpatient rehab at [facility] Patient Condition at Discharge: Stable Plan - Discharge Summary Discharge Rx Participant: No New Discharge Prescriptions: New Aspirin 325 mg PO DAILY #30 tab Atorvastatin [Lipitor] 80 mg PO HS #30 tab Hydrochlorothiazide [Hydrodiuril] 12.5 mg PO DAILY #30 cap Discharge Medication List Aspirin 325 mg PO DAILY #30 tab 04/28/18 [Rx] Atorvastatin [Lipitor] 80 mg PO HS #30 tab 04/28/18 [Rx] Hydrochlorothiazide [Hydrodiuril] 12.5 mg PO DAILY #30 cap 04/28/18 [Rx] Follow up Appointment(s)/Referral(s): Robert Frye MD [STAFF PHYSICIAN] - 2 Weeks Discharge Disposition: TRANSFER TO SNF/ECF
[2018-04-28 12:22] VITALS: BP 135/72; PULSE 65; TEMP 98
--- NOTE | 2018-05-01 10:03 | CDI ---
Documentation Clarification Form Date: 05/01/2018 12:00:00 AM From: MARIA L Caballero; Mora Terry Marketing And Public Relations Manager Phone: If you have a question about this query, please contact Mora Terry Marketing And Public Relations Manager at [phone] between 8am and 5pm. Admit Date: 04/25/2018 10:32:00 PM Patient Name: Mora Cuadra Visit Number: [id number] Discharge Date: 04/28/2018 ATTENTION: The Clinical Documentation Specialists (CDI) and [facility] Coding Staff appreciate your assistance in clarifying documentation. Please respond to the clarification below the line at the bottom and electronically sign. The CDI & [facility] Coding staff will review the response and follow-up if needed. Please note: Queries are made part of the Legal Health Record. If you have any questions, please contact the author of this message via ITS. Dr. Sylvester Seyomur History/Risk Factors: Presented with CVA. Documentation on H&P is rule out acute or chronic kidney injury. Current BUN/CR/GFR: 17, 1.10, 61 Discharge: BUN/CR/GFR: 16, 0.94, 74 In your professional option, please clarify? Acute kidney injury ruled in Acute kidney injury ruled out Chronic kidney injury ruled in Chronic kidney injury ruled out If chronic, please clarify stage: CKD Stage 1 (GFR > 90) CKD Stage 2 (GFR 60-89) CKD Stage 3 (GFR 30-59) CKD Stage 4 (GFR 15-29) CKD Stage 5 (GFR <15) ESRD Other, please specify Unable to determine _Unable to determine MTDD
== END 2018-04-28 14:50 | DRG 65 ==
LOC: EC 20:15 → 6SEL 22:32
PROVIDERS: ADMIT Hospitalist; ATTEND Hospitalist
DX: I63.531 Cerebral infarction due to unspecified occlusion or stenosis of right posterior cerebral artery (principal); E87.2 Acidosis; G81.94 Hemiplegia, unspecified affecting left nondominant side; E04.1 Nontoxic single thyroid nodule; E78.2 Mixed hyperlipidemia; F17.210 Nicotine dependence, cigarettes, uncomplicated; H53.40 Unspecified visual field defects; I10 Essential (primary) hypertension; Z80.0 Family history of malignant neoplasm of digestive organs; Z82.49 Family history of ischemic heart disease and other diseases of the circulatory system; R29.709 NIHSS score 9; Z88.2 Allergy status to sulfonamides; Z71.6 Tobacco abuse counseling
CPT/HCPCS: 36415; 70450; 70496; 70498; 70551; 71046; 80048; 80053; 80061; 81001; 82550; 82553; 83036; 83090; 84443; 84484; 85025; 85610; 85730; 93005; 93306; 95819; 99285

== ENCOUNTER 2019-10-22 00:40 | Emergency (ER) | payer MEDICARE, OTHER ==
[2019-10-22 00:55] VITALS: RESP 18; TEMP 98
[2019-10-22] MEDS ORDERED: SODIUM CHLORIDE 0.9% 1,000 ML IV STA ×2 (01:01→02:16)
--- NOTE | 2019-10-22 01:13 | ED ---
Dizziness HPI - General Chief Complaint: Dizziness Stated Complaint: Hypertension Time Seen by Provider: 10/22/19 00:48 Source: patient, EMS, RN notes reviewed, old records reviewed Mode of arrival: EMS Limitations: no limitations - History of Present Illness Initial Comments: This is a 64-year-old female presents today for evaluation of weakness. Not feeling well, patient states she has been off balance, she is on a diuretic and has been having some alcohol abuse.. No pain or shortness of breath no complaints. Otherwise no acute disease medications. Aside from dizziness patient feels weak and dehydrated no fevers no chest pain or source of breath no abdominal pain. No nausea vomiting or diarrhea MD Complaint: dizziness, lightheadedness -: days(s) Timing: gradual onset Description: lightheadedness History of Same: Yes History of Trauma: No Severity: moderate Improves With: rehydration, rest Worsens With: movement, exertion Associated Symptoms: loss of appetite, weakness - Related Data Previous Rx's Medication Instructions Recorded Aspirin 325 mg PO DAILY #30 tab 04/28/18 Atorvastatin [Lipitor] 80 mg PO HS #30 tab 04/28/18 Hydrochlorothiazide [Hydrodiuril] 12.5 mg PO DAILY #30 cap 04/28/18 Allergies Allergy/AdvReac Type Severity Reaction Status Date / Time Sulfa (Sulfonamide Allergy Unknown Verified 10/22/19 00:55 Antibiotics) Review of Systems ROS Statement: Those systems with pertinent positive or pertinent negative responses have been documented in the HPI. ROS Other: All systems not noted in ROS Statement are negative. Past Medical History Past Medical History: Hypertension Additional Past Medical History / Comment(s): CVA 2018 History of Any Multi-Drug Resistant Organisms: None Reported Past Surgical History: No Surgical Hx Reported Past Anesthesia/Blood Transfusion Reactions: No Reported Reaction Additional Past Anesthesia/Blood Transfusion Reaction / Comment(s): pt has never received either Past Psychological History: No Psychological Hx Reported Smoking Status: Current every day smoker Past Alcohol Use History: None Reported, Rare Past Drug Use History: None Reported - Past Family History Mother Family Medical History: Congestive Heart Failure (CHF), CVA/TIA Additional Family Medical History / Comment(s): Mother of CHF at the age of 83. Father Family Medical History: Cancer, CVA/TIA, Hypertension Additional Family Medical History / Comment(s): Pt's father at the age of 77, colon cancer. General Exam Limitations: no limitations General appearance: alert, in no apparent distress Head exam: Present: atraumatic, normocephalic, normal inspection Eye exam: Present: normal appearance, PERRL, EOMI. Absent: scleral icterus, conjunctival injection, periorbital swelling ENT exam: Present: normal exam, mucous membranes dry Neck exam: Present: normal inspection. Absent: tenderness, meningismus, lymphadenopathy Respiratory exam: Present: normal lung sounds bilaterally. Absent: respiratory distress, wheezes, rales, rhonchi, stridor Cardiovascular Exam: Present: regular rate, normal rhythm, normal heart sounds. Absent: systolic murmur, diastolic murmur, rubs, gallop, clicks GI/Abdominal exam: Present: soft, normal bowel sounds. Absent: distended, tenderness, guarding, rebound, rigid Extremities exam: Present: normal inspection, full ROM, normal capillary refill. Absent: tenderness, pedal edema, joint swelling, calf tenderness Back exam: Present: normal inspection Neurological exam: Present: alert, oriented X3, CN II-XII intact Psychiatric exam: Present: normal affect, normal mood Skin exam: Present: warm, dry, intact, normal color. Absent: rash Course Vital Signs 10/22/19 10/22/19 00:42 02:32 Temperature 98 F Pulse Rate 80 78 Respiratory 18 18 Rate Blood Pressure 162/86 150/87 O2 Sat by Pulse 95 98 Oximetry - Reevaluation(s) Reevaluation #1: Medical records reviewed Patient's no acute distress no pain symptoms significantly improved currently able to eat and drink EKG Findings - EKG Comments: EKG Findings:: EKG shows sinus rhythm of 68, GA 148, QRS 74, QTC 480 Medical Decision Making - Medical Decision Making 64 female here with history of alcohol abuse severe dehydration feeling better with hydration and symptomatic management here in the ER labwork otherwise unremarkable and patient can be discharged home - Lab Data Result diagrams: 10/22/19 01:05 10/22/19 01:05 Lab Results 10/22/19 10/22/19 10/22/19 Range/Units 01:05 01:05 01:05 WBC 8.3 (3.8-10.6) k/uL RBC 4.07 (3.80-5.40) m/uL Hgb 13.3 (11.4-16.0) gm/dL Hct 38.8 (34.0-46.0) % MCV 95.1 (80.0-100.0) fL MCH 32.6 (25.0-35.0) pg MCHC 34.3 (31.0-37.0) g/dL RDW 12.1 (11.5-15.5) % Plt Count 168 (150-450) k/uL Neutrophils % 53 % Lymphocytes % 37 % Monocytes % 5 % Eosinophils % 3 % Basophils % 1 % Neutrophils # 4.5 (1.3-7.7) k/uL Lymphocytes # 3.1 (1.0-4.8) k/uL Monocytes # 0.4 (0-1.0) k/uL Eosinophils # 0.2 (0-0.7) k/uL Basophils # 0.0 (0-0.2) k/uL Manual Slide Review Performed Large Platelets Present Sodium 135 L (137-145) mmol/L Potassium 3.2 L (3.5-5.1) mmol/L Chloride 101 (98-107) mmol/L Carbon Dioxide 26 (22-30) mmol/L Anion Gap 8 mmol/L BUN 29 H (7-17) mg/dL Creatinine 0.95 (0.52-1.04) mg/dL Est GFR (CKD-EPI)AfAm 73 (>60 ml/min/1.73 sqM) Est GFR (CKD-EPI)NonAf 63 (>60 ml/min/1.73 sqM) Glucose 96 (74-99) mg/dL Calcium 9.0 (8.4-10.2) mg/dL Phosphorus 3.4 (2.5-4.5) mg/dL Magnesium 2.0 (1.6-2.3) mg/dL Total Bilirubin 0.6 (0.2-1.3) mg/dL AST 27 (14-36) U/L ALT 22 (4-34) U/L Alkaline Phosphatase 73 (38-126) U/L Creatine Kinase 44 (30-135) U/L Troponin I <0.012 (0.000-0.034) ng/mL Total Protein 6.7 (6.3-8.2) g/dL Albumin 4.1 (3.5-5.0) g/dL TSH 0.813 (0.465-4.680) mIU/L Urine Color Urine Appearance (Clear) Urine pH (5.0-8.0) Ur Specific [place] (1.001-1.035) Urine Protein (Negative) Urine Glucose (UA) (Negative) Urine Ketones (Negative) Urine Blood (Negative) Urine Nitrite (Negative) Urine Bilirubin (Negative) Urine Urobilinogen (<2.0) mg/dL Ur Leukocyte Esterase (Negative) 10/22/19 Range/Units 02:27 WBC (3.8-10.6) k/uL RBC (3.80-5.40) m/uL Hgb (11.4-16.0) gm/dL Hct (34.0-46.0) % MCV (80.0-100.0) fL MCH (25.0-35.0) pg MCHC (31.0-37.0) g/dL RDW (11.5-15.5) % Plt Count (150-450) k/uL Neutrophils % % Lymphocytes % % Monocytes % % Eosinophils % % Basophils % % Neutrophils # (1.3-7.7) k/uL Lymphocytes # (1.0-4.8) k/uL Monocytes # (0-1.0) k/uL Eosinophils # (0-0.7) k/uL Basophils # (0-0.2) k/uL Manual Slide Review Large Platelets Sodium (137-145) mmol/L Potassium (3.5-5.1) mmol/L Chloride (98-107) mmol/L Carbon Dioxide (22-30) mmol/L Anion Gap mmol/L BUN (7-17) mg/dL Creatinine (0.52-1.04) mg/dL Est GFR (CKD-EPI)AfAm (>60 ml/min/1.73 sqM) Est GFR (CKD-EPI)NonAf (>60 ml/min/1.73 sqM) Glucose (74-99) mg/dL Calcium (8.4-10.2) mg/dL Phosphorus (2.5-4.5) mg/dL Magnesium (1.6-2.3) mg/dL Total Bilirubin (0.2-1.3) mg/dL AST (14-36) U/L ALT (4-34) U/L Alkaline Phosphatase (38-126) U/L Creatine Kinase (30-135) U/L Troponin I (0.000-0.034) ng/mL Total Protein (6.3-8.2) g/dL Albumin (3.5-5.0) g/dL TSH (0.465-4.680) mIU/L Urine Color Colorless Urine Appearance Clear (Clear) Urine pH 6.5 (5.0-8.0) Ur Specific [place] 1.003 (1.001-1.035) Urine Protein Negative (Negative) Urine Glucose (UA) Negative (Negative) Urine Ketones Negative (Negative) Urine Blood Negative (Negative) Urine Nitrite Negative (Negative) Urine Bilirubin Negative (Negative) Urine Urobilinogen <2.0 (<2.0) mg/dL Ur Leukocyte Esterase Negative (Negative) Disposition Clinical Impression: Dehydration, Weakness, Dizziness Disposition: HOME SELF-CARE Condition: Good Instructions (If sedation given, give patient instructions): Dehydration (ED), Dizziness (ED) Is patient prescribed a controlled substance at d/c from ED?: No Referrals: Lyndon Jensen MD [Primary Care Provider] - 1-2 days
[2019-10-22 01:45] LABS: Basophils % (A) 1 %; Eosinophils # (A) 0.2 k/uL (0-0.7); Eosinophils % (A) 3 %; HCT 38.8 % (34.0-46.0); HGB 13.3 gm/dL (11.4-16.0); Lymphocytes # (A) 3.1 k/uL (1.0-4.8); Lymphocytes % (A) 37 %; MCH 32.6 pg (25.0-35.0); MCHC 34.3 g/dL (31.0-37.0); MCV 95.1 fL (80.0-100.0); Mean Platelet Volume 12.2; Monocytes # (A) 0.4 k/uL (0-1.0); Monocytes % (A) 5 %; Neutrophils # (A) 4.5 k/uL (1.3-7.7); Neutrophils % (A) 53 %; Platelet Count 168 k/uL (150-450); RBC 4.07 m/uL (3.80-5.40); RDW 12.1 % (11.5-15.5); WBC 8.3 k/uL (3.8-10.6)
[2019-10-22 01:49] LABS: Albumin 4.1 g/dL (3.5-5.0); Phosphorus 3.4 mg/dL (2.5-4.5); Potassium 3.2 mmol/L (3.5-5.1); Total Bilirubin 0.6 mg/dL (0.2-1.3); Total Protein 6.7 g/dL (6.3-8.2)
[2019-10-22 02:00] LABS: Large Platelets Present
[2019-10-22] MEDS ORDERED: POTASSIUM BICARBONATE/CIT AC 20 MEQ TABLET.EFF PO ONE (02:15)
[2019-10-22] MEDS ORDERED: POTASSIUM CHLORIDE ER 20 MEQ TAB.ER PO STA (02:16)
[2019-10-22 02:32] VITALS: BP 150/87; PULSE 78
[2019-10-22 02:34] LABS: Appearance,Urine Clear (Clear); Bilirubin,Urine Negative (Negative); Blood,Urine Negative (Negative); Color,Urine Colorless; Glucose,Urine (UA) Negative (Negative); Ketones,Urine Negative (Negative); Leukocyte Esterase,Urine Negative (Negative); Nitrite,Urine Negative (Negative); PH, Urine 6.5 (5.0-8.0); Protein,Urine Negative (Negative); Specific Gravity,Urine 1.003 (1.001-1.035); Urobilinogen,Urine <2.0 mg/dL (<2.0)
== END 2019-10-22 03:14 | disposition home or self-care (01) ==
LOC: EC 00:40
DX: E86.0 Dehydration (principal); R53.1 Weakness; R42 Dizziness and giddiness; I10 Essential (primary) hypertension; F17.200 Nicotine dependence, unspecified, uncomplicated; Z79.82 Long term (current) use of aspirin; Z79.899 Other long term (current) drug therapy; Z88.2 Allergy status to sulfonamides; Z86.73 Personal history of transient ischemic attack (TIA), and cerebral infarction without residual deficits
CPT/HCPCS: 36415; 80053; 81003; 82550; 83735; 84100; 84443; 84484; 85025; 93005; 96360; 96361; 99284

== ENCOUNTER 2020-01-21 16:27 | Inpatient (IN) | payer MEDICARE, OTHER ==
[2020-01-21 17:09] LABS: Basophils % (A) 1 %; Eosinophils # (A) 0.2 k/uL (0-0.7); Eosinophils % (A) 4 %; HCT 37.3 % (34.0-46.0); HGB 12.3 gm/dL (11.4-16.0); Lymphocytes # (A) 1.9 k/uL (1.0-4.8); Lymphocytes % (A) 42 %; MCH 31.8 pg (25.0-35.0); MCV 96.2 fL (80.0-100.0); Mean Platelet Volume 11.5; Monocytes # (A) 0.3 k/uL (0-1.0); Monocytes % (A) 6 %; Neutrophils # (A) 2.1 k/uL (1.3-7.7); Neutrophils % (A) 45 %; Platelet Count 146 k/uL (150-450); RBC 3.88 m/uL (3.80-5.40); RDW 12.9 % (11.5-15.5); WBC 4.6 k/uL (3.8-10.6)
[2020-01-21 17:20] LABS: ALT 18 U/L (4-34); AST 21 U/L (14-36); African American GFR (CKD) >90 (>60 ml/min/1.73 sqM); Alkaline Phosphatase 59 U/L (38-126); Anion Gap 8 mmol/L; Blood Urea Nitrogen 20 mg/dL (7-17); Calcium 9.3 mg/dL (8.4-10.2); Carbon Dioxide 24 mmol/L (22-30); Chloride 109 mmol/L (98-107); Glucose 100 mg/dL (74-99); Non-African American GFR(CKD) 79 (>60 ml/min/1.73 sqM); Sodium 141 mmol/L (137-145); Total Bilirubin 0.5 mg/dL (0.2-1.3); Total Protein 6.6 g/dL (6.3-8.2)
[2020-01-21] MEDS ORDERED: DIAZEPAM 5 MG/ML 2 ML INJ IVP STA (17:29)
[2020-01-21] MEDS ORDERED: MECLIZINE 12.5 MG TAB PO STA (17:29)
--- NOTE | 2020-01-21 17:49 | XR ---
EXAMINATION TYPE: XR chest 2V DATE OF EXAM: 01/21/2020 COMPARISON: 04/25/2018 HISTORY: Syncope TECHNIQUE: FINDINGS: There is no heart failure nor confluent pneumonic infiltrate. Heart size is normal. Costoph renic angles are clear. Bony thorax is intact. IMPRESSION: No active cardiopulmonary disease. Normal heart. No change.
--- NOTE | 2020-01-21 17:57 | ED ---
Dizziness HPI - General Source: patient Mode of arrival: ambulatory Limitations: no limitations <Edie Lima - Last Filed: 01/23/20 11:57> <Noa Herring - Last Filed: 01/29/20 00:59> - General Chief Complaint: Dizziness Stated Complaint: High BP Time Seen by Provider: 01/21/20 16:42 - History of Present Illness Initial Comments: 64 year old female with history of CVA with left-sided deficits including left upper extremity contracture left leg weakness and left-sided sensation deficit, history of dyslipidemia as well as hypertension presenting to emergency department for elevated blood pressure readings at home and dizziness. Patient states she has been dizzy for the past week on and off she states is been increasing today. Patient state she feels like the room is spinning. Patient denies any headache and neck pain nausea vomiting she denies any new weakness or 6 sensation deficits. Denies any speech changes visual changes denies diplopia. Patient denies chest pain shortness of breath, lightheaded sensation are presyncope. Patient denies any additional complaints upon arrival patient blood pressure is elevated she does not appear in acute distress. There is no obvious ataxia. (Edie Lima) - Related Data Home Medications Medication Instructions Recorded Confirmed Aspirin EC [Ecotrin Low Dose] 81 mg PO DAILY 01/21/20 01/21/20 Atorvastatin [Lipitor] 20 mg PO HS 01/21/20 01/21/20 LORazepam [Ativan] 0.5 mg PO TID PRN 01/21/20 01/21/20 Lisinopril 20 mg PO DAILY 01/21/20 01/21/20 hydrALAZINE HCL [Apresoline] 50 mg PO TID 01/21/20 01/21/20 Previous Rx's Medication Instructions Recorded Meclizine [Antivert] 25 mg PO TID PRN #0 01/23/20 Nicotine 7Mg/24Hr Patch [Habitrol] 1 patch TRANSDERM DAILY #14 patch 01/23/20 Cyanocobalamin [Vitamin B-12 1,000 mcg IM DAILY #3 vial 01/24/20 Injection] Cyanocobalamin [Vitamin B-12] 100 mcg PO DAILY #30 tablet 01/24/20 Allergies Allergy/AdvReac Type Severity Reaction Status Date / Time Sulfa (Sulfonamide Allergy Unknown Verified 01/21/20 18:57 Antibiotics) Childhood Review of Systems ROS Other: All systems not noted in ROS Statement are negative. <Edie Lima - Last Filed: 01/23/20 11:57> ROS Other: All systems not noted in ROS Statement are negative. <Noa Herring - Last Filed: 01/29/20 00:59> ROS Statement: Those systems with pertinent positive or pertinent negative responses have been documented in the HPI. Past Medical History Past Medical History: CVA/TIA, Hyperlipidemia, Hypertension Additional Past Medical History / Comment(s): CVA 2018 History of Any Multi-Drug Resistant Organisms: None Reported Past Surgical History: No Surgical Hx Reported Past Anesthesia/Blood Transfusion Reactions: No Reported Reaction Additional Past Anesthesia/Blood Transfusion Reaction / Comment(s): pt has never received either Past Psychological History: Anxiety Smoking Status: Current every day smoker Past Alcohol Use History: None Reported Past Drug Use History: None Reported - Past Family History Mother Family Medical History: Congestive Heart Failure (CHF), CVA/TIA Additional Family Medical History / Comment(s): Mother of CHF at the age of 83. Father Family Medical History: Cancer, CVA/TIA, Hypertension Additional Family Medical History / Comment(s): Pt's father at the age of 77, colon cancer. <Edie Lima - Last Filed: 01/23/20 11:57> General Exam Limitations: no limitations <Edie Lima - Last Filed: 01/23/20 11:57> - General Exam Comments Initial Comments: General: The patient is awake and alert, in no distress, and does not appear acutely ill. Eye: +3 mm pupils are equal, round and reactive to light, extra-ocular movements are intact. No nystagmus. There is normal conjunctiva bilaterally. No signs of icterus. Ears, nose, mouth and throat: There are moist mucous membranes and no oral lesions. Neck: The neck is supple, there is no tenderness or JVD. Cardiovascular: There is a regular rate and rhythm. No murmur, rub or gallop is appreciated. Respiratory: Lungs are clear to auscultation, respirations are non-labored, breath sounds are equal. No wheezes, stridor, rales, or rhonchi. Gastrointestinal: Soft, non-distended, non-tender abdomen without masses or organomegaly noted. There is no rebound or guarding present. Musculoskeletal: Normal ROM, no tenderness. Strength 5/5. Sensation intact. Radial pulses equal bilaterally 2+. Neurological: A&O x 3. CN II-XII intact, There are no obvious motor or sensory deficits. Coordination appears grossly intact. Speech is normal. Right sided heel to edouard and finger to nose intact. Left LE drink. No drift of RUE. Patient right finger to nose smooth and coordinated. Left UE contracture, spasticity. Sensation decreased LUE and LLE. Full sensation RUE and RLE. Gait with ataxia. Skin: Skin is warm and dry and no rashes or lesions are noted. Psychiatric: Cooperative, appropriate mood & affect, normal judgment. (Edie Lima) Course <Edie Lima - Last Filed: 01/23/20 11:57> Vital Signs 01/21/20 01/21/20 01/21/20 16:32 17:30 18:30 Temperature 98.4 F Pulse Rate 86 74 72 Respiratory 20 18 18 Rate Blood Pressure 132/72 116/78 136/70 O2 Sat by Pulse 99 98 98 Oximetry 01/21/20 01/21/20 19:25 19:54 Temperature Pulse Rate 72 69 Respiratory 16 16 Rate Blood Pressure 156/80 112/68 O2 Sat by Pulse 97 99 Oximetry - Reevaluation(s) Reevaluation #1: Discussed at length with patient that there is no on-site neurologist there is available telemedicine patient states that she does not want to be transferred to a facility with on-site neurology and would prefer telemedicine and to stay at this facility for further evaluation 01/21/20 20:17 (Edie Lima) Medical Decision Making - Lab Data Result diagrams: 01/21/20 16:50 01/21/20 16:50 <Edie Lima - Last Filed: 01/23/20 11:57> - Lab Data Result diagrams: 01/21/20 16:50 01/21/20 16:50 <Noa Herring - Last Filed: 01/29/20 00:59> - Medical Decision Making 58yo female presenting today for chief complaint of intractable dizziness. Patient does continue to bring up meclizine there may be a history of vertigo however patient denies. Patient has no new identified acute focal neurological deficits. Patient has baseline deficits of the left upper extremity contracture as well as a left-sided sensation deficit with left leg weakness. CT without contrast revealed no obvious acute abnormality. Patient has no ataxia finger- nose solution of the right sided smooth and coordinated. No nystagmus. Patient's EKG no acute findings. Troponin negative left her studies remain st able. Patient states she has no significant improvement after meclizine and Valium. I discussed that we have telemedicine neurology no on-site patient states she was would like to be admitted at this facility regardless of no on- site neurology for further evaluation of her dizziness. I discussed the case attending provider who reviewed EKG, evaluated the patient and spoke with the accepting admitting provider Dr. Wyatt. (Edie Lima) I was available for consultation in the emergency department. The history and physical exam were done by the midlevel provider. I was consulted for this patients care. I reviewed the case with the midlevel provider and based on their presentation of the patient, I agree with the assessment, medical decision making and plan of care as documented. Chart was dictated using [employer] dictation software. Attempts were made to cor rect any dictation errors however some typographical errors may persist. The [facility] to the Covid-19 pandemic. (Noa Herring) - Lab Data Lab Results 01/21/20 01/21/20 01/21/20 Range/Units 16:50 16:50 16:50 WBC 4.6 (3.8-10.6) k/uL RBC 3.88 (3.80-5.40) m/uL Hgb 12.3 (11.4-16.0) gm/dL Hct 37.3 (34.0-46.0) % MCV 96.2 (80.0-100.0) fL MCH 31.8 (25.0-35.0) pg MCHC 33.0 (31.0-37.0) g/dL RDW 12.9 (11.5-15.5) % Plt Count 146 L (150-450) k/uL Neutrophils % 45 % Lymphocytes % 42 % Monocytes % 6 % Eosinophils % 4 % Basophils % 1 % Neutrophils # 2.1 (1.3-7.7) k/uL Lymphocytes # 1.9 (1.0-4.8) k/uL Monocytes # 0.3 (0-1.0) k/uL Eosinophils # 0.2 (0-0.7) k/uL Basophils # 0.0 (0-0.2) k/uL Sodium 141 (137-145) mmol/L Potassium 4.0 (3.5-5.1) mmol/L Chloride 109 H (98-107) mmol/L Carbon Dioxide 24 (22-30) mmol/L Anion Gap 8 mmol/L BUN 20 H (7-17) mg/dL Creatinine 0.79 (0.52-1.04) mg/dL Est GFR (CKD-EPI)AfAm >90 (>60 ml/min/1.73 sqM) Est GFR (CKD-EPI)NonAf 79 (>60 ml/min/1.73 sqM) Glucose 100 H (74-99) mg/dL Calcium 9.3 (8.4-10.2) mg/dL Total Bilirubin 0.5 (0.2-1.3) mg/dL AST 21 (14-36) U/L ALT 18 (4-34) U/L Alkaline Phosphatase 59 (38-126) U/L Troponin I <0.012 (0.000-0.034) ng/mL Total Protein 6.6 (6.3-8.2) g/dL Albumin 4.0 (3.5-5.0) g/dL Vitamin B1 (38-122) ug/L Vitamin B12 (200.0-944.0) pg/mL Folate ng/mL 01/23/20 01/23/20 Range/Units 06:20 06:20 WBC (3.8-10.6) k/uL RBC (3.80-5.40) m/uL Hgb (11.4-16.0) gm/dL Hct (34.0-46.0) % MCV (80.0-100.0) fL MCH (25.0-35.0) pg MCHC (31.0-37.0) g/dL RDW (11.5-15.5) % Plt Count (150-450) k/uL Neutrophils % % Lymphocytes % % Monocytes % % Eosinophils % % Basophils % % Neutrophils # (1.3-7.7) k/uL Lymphocytes # (1.0-4.8) k/uL Monocytes # (0-1.0) k/uL Eosinophils # (0-0.7) k/uL Basophils # (0-0.2) k/uL Sodium (137-145) mmol/L Potassium (3.5-5.1) mmol/L Chloride (98-107) mmol/L Carbon Dioxide (22-30) mmol/L Anion Gap mmol/L BUN (7-17) mg/dL Creatinine (0.52-1.04) mg/dL Est GFR (CKD-EPI)AfAm (>60 ml/min/1.73 sqM) Est GFR (CKD-EPI)NonAf (>60 ml/min/1.73 sqM) Glucose (74-99) mg/dL Calcium (8.4-10.2) mg/dL Total Bilirubin (0.2-1.3) mg/dL AST (14-36) U/L ALT (4-34) U/L Alkaline Phosphatase (38-126) U/L Troponin I (0.000-0.034) ng/mL Total Protein (6.3-8.2) g/dL Albumin (3.5-5.0) g/dL Vitamin B1 52 (38-122) ug/L Vitamin B12 197.0 L (200.0-944.0) pg/mL Folate 11.3 ng/mL Disposition Is patient prescribed a controlled substance at d/c from ED?: No Time of Disposition: 20:19 Decision to Admit Reason: Admit from EC Decision Date: 01/21/20 Decision Time: 20:20 <Edie Lima - Last Filed: 01/23/20 11:57> <Noa Herring - Last Filed: 01/29/20 00:59> Clinical Impression: Dizziness, Elevated blood pressure reading Disposition: ADMITTED IP TO THIS [facility] Condition: Stable
--- NOTE | 2020-01-21 18:44 | CT ---
EXAMINATION TYPE: CT brain wo con DATE OF EXAM: 01/21/2020 COMPARISON: 04/25/2018 HISTORY: Dizziness CT DLP: 1111.4 mGycm Automated exposure control for dose reduction was used. There is large area of hypodensity involving entire right occipital lobe consistent with an old right posterior cerebral artery infarct. There is no midline shift. There is no mass effect. There is no s ign of intracranial hemorrhage. The calvarium is intact. IMPRESSION: No acute intracranial abnormality. Large old right occipital lobe and right posterior temporal lobe i nfarct without progression compared to old exam.
[2020-01-21] MEDS ORDERED: SODIUM CHLORIDE 0.9% 500 ML 500 ML IV ONE (19:58)
[2020-01-21] MEDS ORDERED: NALOXONE 0.4 MG/ML 1 ML VIAL IV PRN (19:59)
[2020-01-21] MEDS: SODIUM CHLORIDE 0.9% 1,000 ML IV SCH (20:17)
[2020-01-22] MEDS ORDERED: MECLIZINE 25 MG TAB PO PRN (08:49)
[2020-01-22] MEDS ORDERED: LORazepam 0.5 MG TAB PO PRN (09:15)
[2020-01-22] MEDS: SODIUM CHLORIDE 0.9% 1,000 ML IV SCH (09:57)
[2020-01-22] MEDS: hydrALAZINE HCL 50 MG TAB PO SCH ×3 (10:29→21:14)
[2020-01-22] MEDS: ENOXAPARIN 40 MG/0.4 ML SYRINGE SQ SCH (14:21)
[2020-01-22] MEDS: ASPIRIN 81 MG PO SCH (14:21)
[2020-01-22] MEDS: LISINOPRIL 20 MG TAB PO SCH (14:21)
--- NOTE | 2020-01-22 14:59 | MR ---
MR brain without contrast HISTORY: Cerebrovascular accident Multiplanar multisequence imaging through the brain Correlation to prior MR brain 04/26/2018 There is encephalomalacia in the distribution of the patient's previous cerebrovascular accident. Juan e surrounding hyperintensity on inversion recovery and T2-weighted sequences at the level of the adrian ent's prior infarct. Ex vacuo phenomenon present at the right lateral ventricle. There is no evident hemorrhage. There are normal vascular flow voids present. Inflammatory change is present within the m astoid air cells on the right. Cortical atrophy is likely age-related. Corpus callosum, pituitary, ce rvical medullary junction, cerebellopontine angles within normal limits. Orbits show symmetric appear ance. IMPRESSION: Remote cerebrovascular accident. Additional findings above.
--- NOTE | 2020-01-22 15:02 | US ---
EXAMINATION TYPE: US carotid duplex BILAT DATE OF EXAM: 01/22/2020 COMPARISON: NONE CLINICAL HISTORY: ataxia hx of prior stroke. Dizziness, history of stroke, exam done portable. EXAM MEASUREMENTS: RIGHT: Peak Systolic Velocity (PSV) cm/sec ----- Right CCA: 105.1 ----- Right ICA: 76.3 ----- Right ECA: 101.9 ICA/CCA ratio: 0.7 RIGHT: End Diastole cm/sec ----- Right CCA: 19.3 ----- Right ICA: 16.5 ----- Right ECA: 11.7 LEFT: Peak Systolic Velocity (PSV) cm/sec ----- Left CCA: 72.1 ----- Left ICA: 80.0 ----- Left ECA: 94.2 ICA/CCA ratio: 1.1 LEFT: End Diastole cm/sec ----- Left CCA: 17.1 ----- Left ICA: 18.8 ----- Left ECA: 8.2 VERTEBRALS (direction of flow): Right Vertebral: Antegrade Left Vertebral: Antegrade Rhythm: Normal No elevated velocities, no significant stenosis. IMPRESSION: 1. No significant flow-limiting stenosis. Criteria for Assigning % of Stenosis / Diameter reduction (Estimation based on the indirect measurements of the internal carotid artery velocities (ICA PSV). 1. Normal (no stenosis)=ICA PSV < 125 cm/s: ratio < 2.0: ICA EDV<40 cm/s. 2. Less than 50% stenosis=ICA PSV < 125 cm/s: ratio < 2.0: ICA EDV<40 cm/s. 3. 50 to 69% stenosis=ICA PSV of 125 to 230 cm/s: ration 2.0 ? 4.0: ICA EDV 40-100 cm/s. 4. Greater than 70% stenosis to near occlusion= ICA PSV > 230 cm/s: ratio > 4.0: ICA EDV > 100 cm/s. 5. Near occlusion= ICA PSV velocities may be low or undetectable: variable ratio and ICA EDV. 6. Total occlusion=unable to detect flow.
--- NOTE | 2020-01-22 15:27 | MR ---
EXAMINATION TYPE: MR angio head/neck wo con DATE OF EXAM: 01/22/2020 COMPARISON: HISTORY: Hx of Prior CVA with left sided deficits. Left Arm flacid with uncontrolled movements. Patie nt complaining of Extreme Dizziness. CONTRAST: None TECHNIQUE: Multiplanar multiecho imaging on a 3.0 Sary magnet is performed through the [place] of [place] lis. 3-D [id number] imaging is performed. Source images are reviewed on the computer in the axi al plane. Reconstructed images rotating on the computer are reviewed. FINDINGS: The internal carotid arteries bifurcate normally into A1 and M1 segments. The A2 segments are normal. Middle cerebral artery branches are normal. Anterior communicating artery is not clearly evident.. The right posterior communicating artery is absent. The left posterior communicating artery is patent. Vertebrobasilar arteries within the [id number] are normal. Posterior cerebral vasculature is norm al. No suspicious aneurysm or aneurysmal dilatation is evident. No obstructions are identified. No significant flow-limiting stenosis is evident. Patient's old right occipital lobe infarct is evident. Multiplanar multiecho imaging performed to the carotid bifurcations. No significant flow-limiting megan nosis is evident. Internal and external carotid arteries are patent to the skull base. No flow gaps a re evident. Significant plaquing is not appreciated. Right vertebral artery is slightly more prominen t than left. Both vertebral arteries are patent to the skull base. IMPRESSIONS: 1. NORMAL MRA [place] OF DODD. 2. Normal bilateral carotid bifurcations.
--- NOTE | 2020-01-22 17:05 | P.HPIM ---
History of Present Illness H&P Date: 01/22/20 Chief Complaint: Dizziness History of presenting complaint: This is a 64-year-old patient of visiting physicians Dr. Jensen. Chronic stable medical conditions include hypertension, hyperlipidemia, left arm contracture from prior stroke. Patient does use a walker to get about. Also underlying anxiety. Patient has been dizzy at least for off-and-on for about 2 weeks. Has become much was decided to come in. Dizziness is more so with movement not otherwise addressed. No nausea vomiting. No change in vision. No change in speech. In the past she's had dizziness with some change in her blood pressure. We do not have in-house neurology service and the ER physician did speak to the patient to neurology service will only be available this morning. Patient is acceptable to that. Did not want to get transferred out. Review of systems: GEN.: None EYES: None HEENT: None NECK: None RESPIRATORY: Occasional shortness of breath occasional wheezing CARDIOVASCULAR: None GASTROINTESTINAL: None GENITOURINARY: None MUSCULOSKELETAL: Contracture of the left arm LYMPHATICS: None HEMATOLOGICAL: None PSYCHIATRY: None NEUROLOGICAL: Some weakness of left leg does use a walker] Past medical history to include: Stroke with left-sided weakness predominantly of the left arm, hypertension, hyperlipidemia, kidney dysfunction uses a walker Social history: Patient is smoking a pack a day for close to 55 years. Lives alone. Does use a walker. No alcohol. Physical examination: VITAL SIGNS: 98.4, 86, 20, 132/72, 99% on room air GENERAL: BMI 22.3, sitting up in bed, not in distress. EYES: Pupils equal. Conjunctiva normal. HEENT: External appearance of nose and ears normal, oral cavity grossly normal. NECK: JVD not raised; masses not palpable. HEART: First and second heart sounds are normal; no edema. LUNGS: Respiratory rate normal; decreased breath sounds. ABDOMEN: Soft, nontender, liver spleen not palpable, no masses palpable. PSYCH: Alert and oriented x3; mood and affect normal. NEUROLOGICAL: [Cranial nerves grossly intact; no facial asymmetry, left arm contracture LYMPHATICS: No lymph nodes palpable in the axilla and neck INVESTIGATIONS, reviewed in the clinical context: White count 4.6 hemoglobin 12.3 platelets 146 potassium 4 creatinine 0.79 EKG tracing personally reviewed by me-no sinus rhythm Chest x-ray film personally reviewed by me-no obvious pulmonary abnormality Assessment: -This is a patient had 2 weeks of dizziness off and on. More so related with head movements. It could be benign paroxysmal positional vertigo. Cannot rule out evidence of vasculitis. No obvious nystagmus. Patient does not have any cerebellar signs. Neurology is being consulted. 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 Lovenox for DVT prophylaxis. Neuro checks. Neurology was consulted. Care was discussed with the patient. Start the patient on Antivert Past Medical History Past Medical History: CVA/TIA, Hyperlipidemia, Hypertension Additional Past Medical History / Comment(s): CVA 2018 History of Any Multi-Drug Resistant Organisms: None Reported Past Surgical History: No Surgical Hx Reported Past Anesthesia/Blood Transfusion Reactions: No Reported Reaction Additional Past Anesthesia/Blood Transfusion Reaction / Comment(s): pt has never received either Past Psychological History: Anxiety Smoking Status: Current every day smoker Past Alcohol Use History: None Reported Past Drug Use History: None Reported - Past Family History Mother Family Medical History: Congestive Heart Failure (CHF), CVA/TIA Additional Family Medical History / Comment(s): Mother of CHF at the age of 83. Father Family Medical History: Cancer, CVA/TIA, Hypertension Additional Family Medical History / Comment(s): Pt's father at the age of 77, colon cancer. Medications and Allergies Home Medications Medication Instructions Recorded Confirmed Type Aspirin EC [Ecotrin Low Dose] 81 mg PO DAILY 01/21/20 01/21/20 History Atorvastatin [Lipitor] 20 mg PO HS 01/21/20 01/21/20 History LORazepam [Ativan] 0.5 mg PO TID PRN 01/21/20 01/21/20 History Lisinopril 20 mg PO DAILY 01/21/20 01/21/20 History Meclizine [Antivert] 25 mg PO BID PRN 01/21/20 01/21/20 History hydrALAZINE HCL [Apresoline] 50 mg PO TID 01/21/20 01/21/20 History Allergies Allergy/AdvReac Type Severity Reaction Status Date / Time Sulfa (Sulfonamide Allergy Unknown Verified 01/21/20 18:57 Antibiotics) Childhood Physical Exam Vitals: Vital Signs Temp Pulse Pulse Pulse Pulse Pulse Resp 01/22/20 09:05 74 80 72 01/22/20 08:00 98.4 F 69 16 01/22/20 04:00 98.2 F 70 18 01/22/20 00:00 98.3 F 76 18 01/21/20 21:00 98.4 F 75 18 01/21/20 20:34 98 F 67 18 01/21/20 19:54 69 16 01/21/20 19:25 72 16 01/21/20 18:30 72 18 01/21/20 17:30 74 18 01/21/20 16:32 98.4 F 86 20 BP BP BP BP BP Pulse Ox 01/22/20 09:05 152/93 141/83 138/76 01/22/20 08:00 121/65 96 01/22/20 04:00 121/69 97 01/22/20 00:00 114/57 96 01/21/20 21:00 127/69 98 01/21/20 20:34 118/78 98 01/21/20 19:54 112/68 99 01/21/20 19:25 156/80 97 01/21/20 18:30 136/70 98 01/21/20 17:30 116/78 98 01/21/20 16:32 132/72 99 Intake and Output 01/21/20 01/22/20 01/22/20 22:59 06:59 14:59 Other: Voiding Method Toilet Toilet # Voids 1 1 Weight 59.874 kg 62.8 kg Results CBC & Chem 7: 01/21/20 16:50 01/21/20 16:50 Labs: Abnormal Lab Results - Last 24 Hours (Table) 01/21/20 01/21/20 Range/Units 16:50 16:50 Plt Count 146 L (150-450) k/uL Chloride 109 H (98-107) mmol/L BUN 20 H (7-17) mg/dL Glucose 100 H (74-99) mg/dL
--- NOTE | 2020-01-22 17:58 | P.CNNES ---
History of Present Illness Consult date: 01/22/20 Reason for Consult: Dizziness and gait instability Chief complaint: Dizziness History of Present Illness: This is a new neurology consult requested for further advice and recommendations for a 66-year-old right-handed female who presented to the emergency room with difficulty walking. She described this as feeling as though she was on a boat rocking back and forth. She's had prior episodes of dizziness but she said this dizziness felt very different from prior. Her other episodes of dizziness have often occurred in conjunction with hypertension. This patient has a significant past medical history for a large ischemic infarct involving the right middle cerebral artery territory. 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 The patient also still smokes on a daily basis 5-6 cigarettes a day prior to this she would smoke 1-2 packs a day prior to her stroke which was proximally year and half ago. The patient does admit over the past several weeks that her diet has been quite poor. She is eating significant amount of process foods lots of sugar describes her diet as ""horrible. This past weekend she noted that when she would wake up she would feel no difficulty with balance it was not until she was up and about moving around in her home apartment that she would start to feel the floor underneath her was moving. She does not describe this as vertiginous but rather a rocking back and forth type motion. She denies having any falls. Patient also denies having any change in hearing swallowing or tasting or other bulbar symptoms. Patient does does not describe any nausea or vomiting. She does however report that since this is started that her visual acuity appears less for distance. The patient does take on an infrequent basis aspirin at home. She was also recently started on lisinopril by her primary care doctor but admits that she is not taking that is regularly as she should. Review of Systems A 10 point review of systems was obtained with positive pertinent negatives rel ated to the history of present illness. Patient does report poor sleep continuity with frequent awakenings from snoring suspicious for sleep disordered breathing. Past Medical History Past Medical History: CVA/TIA, Hyperlipidemia, Hypertension Additional Past Medical History / Comment(s): CVA 2018 History of Any Multi-Drug Resistant Organisms: None Reported Past Surgical History: No Surgical Hx Reported Past Anesthesia/Blood Transfusion Reactions: No Reported Reaction Additional Past Anesthesia/Blood Transfusion Reaction / Comment(s): pt has never received either Past Psychological History: Anxiety Smoking Status: Current every day smoker Past Alcohol Use History: None Reported Past Drug Use History: None Reported - Past Family History Mother Family Medical History: Congestive Heart Failure (CHF), CVA/TIA Additional Family Medical History / Comment(s): Mother of CHF at the age of 83. Father Family Medical History: Cancer, CVA/TIA, Hypertension Additional Family Medical History / Comment(s): Pt's father at the age of 77, colon cancer. Medications and Allergies Home Medications Medication Instructions Recorded Confirmed Type Aspirin EC [Ecotrin Low Dose] 81 mg PO DAILY 01/21/20 01/21/20 History Atorvastatin [Lipitor] 20 mg PO HS 01/21/20 01/21/20 History LORazepam [Ativan] 0.5 mg PO TID PRN 01/21/20 01/21/20 History Lisinopril 20 mg PO DAILY 01/21/20 01/21/20 History Meclizine [Antivert] 25 mg PO BID PRN 01/21/20 01/21/20 History hydrALAZINE HCL [Apresoline] 50 mg PO TID 01/21/20 01/21/20 History Allergies Allergy/AdvReac Type Severity Reaction Status Date / Time Sulfa (Sulfonamide Allergy Unknown Verified 01/21/20 18:57 Antibiotics) Childhood Physical Examination - Vital Signs Vital Signs: Vital Signs Temp Pulse Pulse Pulse Pulse Pulse Resp 01/22/20 16:00 63 16 01/22/20 12:00 98.3 F 71 16 01/22/20 09:05 74 80 72 01/22/20 08:00 98.4 F 69 16 01/22/20 04:00 98.2 F 70 18 01/22/20 00:00 98.3 F 76 18 01/21/20 21:00 98.4 F 75 18 01/21/20 20:34 98 F 67 18 01/21/20 19:54 69 16 01/21/20 19:25 72 16 01/21/20 18:30 72 18 BP BP BP BP BP Pulse Ox 01/22/20 16:00 129/60 98 01/22/20 12:00 140/84 97 01/22/20 09:05 152/93 141/83 138/76 01/22/20 08:00 121/65 96 01/22/20 04:00 121/69 97 01/22/20 00:00 114/57 96 01/21/20 21:00 127/69 98 01/21/20 20:34 118/78 98 01/21/20 19:54 112/68 99 01/21/20 19:25 156/80 97 01/21/20 18:30 136/70 98 Intake and Output 01/22/20 01/22/20 01/22/20 06:59 14:59 22:59 Intake Total 240 Balance 240 Intake: Oral 240 Other: Voiding Method Toilet Toilet # Voids 1 1 1 Weight 62.8 kg Gen. physical exam Appearance: Poor body weight poor condition. No acute distress. HEENT:: Clear sclera oropharynx is clear. Broad-based tongue Gopi Gonzalez grade 3. Neck appears supple no cervical lymphadenopathy or thyromegaly noted. Pulses: Radial pedal pulses appear equal and symmetric. Extremities: No edema noted in the feet bilaterally. There is significant edema from disuse and atrophy also noted in the left hand. No clubbing of the digits noted. Skin: No rash bruising or petechia noted. Neurological exam Mental status awake alert oriented 3. Speech is fluent. Next line pupils 2 mm equally reactive to light and accommodation. Cranial nerve exam: Extraocular movements are full. No nystagmus noted on vertical horizontal gaze. Face appears symmetric. Cranial nerve VIII is intact by clinical observation. Palate elevates symmetrically. Shoulder shrug is sy mmetric. Tongue is midline without fasciculations deviation. Motor examination strength is 5 out of 5 over the right upper and lower extremity. There is positive significant pronator drift on the left upper extremity. There is significant increased tone in the left upper extremity. Patient is unable to lift the left arm at shoulder level consistent with a dense hemiplegia. The left hand is significantly contracted. Coordination is not possible. Lower extremity testing on the left leg: Strength is 5 out of 5 throughout. No fasciculations or tremor noted. Deep tendon reflexes: Hyperreflexic throughout over biceps brachial radialis and triceps. Patellar reflexes are +3 without crossed adduction. Ankle jerks are trace bilaterally. Plantar responses are withdrawal bilaterally. No ankle clonus is elicited. Sensory examination grossly intact to light touch and pinprick over the upper and lower extremities equally. Gait examination: Patient was assisted to transition from lying to standing. Patient required assistance was unable to ambulate due to dizziness. Her stance is broad-based. Results - Laboratory Findings CBC and BMP: 01/21/20 16:50 01/21/20 16:50 Abnormal Lab Findings: Abnormal Labs 01/21/20 01/21/20 16:50 16:50 Plt Count 146 L Chloride 109 H BUN 20 H Glucose 100 H - Diagnostic Findings Chest x-ray: report reviewed (MRI of the brain and MRA of the head and neck reviewed.) Assessment and Plan Assessment: 66-year-old female admitted for history of gait instability ataxia occurring approximately over this past weekend. No bulbar symptoms noted. Review the MRI of the brain does not show any evidence of a new acute infarct only the old area which has consisted encephalomalacia. The MRA of the head and neck show no evidence of any high-grade stenosis or large vessel occlusion. This patient does continue to smoke heavily despite having her stroke. She has fairly recently within the last several weeks cutback which could give rise to nicotine withdrawal. At this time the patient's gait is consistent with ataxia. This patient lives alone and would be a fall risk if she was discharged home. I am recommending further workup with a cardiac echo and continue on low-dose aspirin. Currently the patient's platelets are low which need to be monitored. This patient would benefit from neuro rehabilitation. I strongly recommend PTC this patient as well as OT and case management evaluate her for transfer to acute rehab. This patient is motivated on this admission to undergo nicotine withdrawal and is requesting for nicotine patch. The patient's neurological exam is significant for dense hemiplegia of the left upper extremity with contractures. The review of systems is also significant for high suspicion for sleep disordered breathing. Untreated sleep apnea is the third bleeding risk factor for stroke independent of diabetes hypertension and atrial fibrillation. Plan: Recommendations: 1. Continue with current statin therapy follow-up with lipid panel. 2. Continue with aspirin at 81 mg enteric-coated. Close monitor platelets. 3. Case management to evaluate for acute rehab placement. 4. PT and OT to assess. 5. Nicotine patch dose appropriately to her current level of smoking. 6. Maintain systolic blood pressure between 10/24/1939 and diastolic blood pressure 80-90. 7. Neuro checks every 4 hours while awake per nursing protocol. 8. B12 and folate level to rule out possible peripheral neuropathy as an underlying cause for proprioceptive disturbance. This patient's prognosis remains very guarded. Further recommendations will be made as this case evolves. Thank you for the consultation. Will follow the patient daily to to discharge.
[2020-01-22] MEDS: MECLIZINE 25 MG TAB PO SCH ×2 (20:03→21:14)
[2020-01-22] MEDS: ATORVASTATIN 20 MG TAB PO SCH (21:14)
[2020-01-23] MEDS: NICOTINE 7MG/24HR PATCH TRANSDERM SCH ×2 (08:49→08:52)
[2020-01-23] MEDS: ASPIRIN 81 MG PO SCH (08:49)
[2020-01-23] MEDS: hydrALAZINE HCL 50 MG TAB PO SCH ×3 (08:49→21:08)
[2020-01-23] MEDS: MECLIZINE 25 MG TAB PO SCH ×3 (08:49→21:08)
[2020-01-23] MEDS: LISINOPRIL 20 MG TAB PO SCH (08:49)
[2020-01-23 11:25] LABS: Folate, Serum 11.3 ng/mL
[2020-01-23 11:34] VITALS: RESP 18
[2020-01-23] MEDS: ENOXAPARIN 40 MG/0.4 ML SYRINGE SQ SCH (14:27)
[2020-01-23] MEDS: CYANOCOBALAMIN 1,000 MCG/ML 1 ML VIAL IM SCH (15:59)
--- NOTE | 2020-01-23 19:34 | P.PN ---
Progress Note - Text Progress Note Date: 01/23/20 Chief Complaint: Dizziness History of presenting complaint: This is a 64-year-old patient of visiting physicians Dr. Jensen. Chronic stable medical conditions include hypertension, hyperlipidemia, left arm contracture from prior stroke. Patient does use a walker to get about. Also underlying anxiety. Patient has been dizzy at least for off-and-on for about 2 weeks. Has become much was decided to come in. Dizziness is more so with movement not otherwise addressed. No nausea vomiting. No change in vision. No change in speech. In the past she's had dizziness with some change in her blood pressure. We do not have in-house neurology service and the ER physician did speak to the patient to neurology service will only be available this morning. Patient is acceptable to that. Did not want to get transferred out. Admitted with-acute dizziness. Workup in place. Today-patient very keen to go home. Symptoms are somewhat better. But not gone. When I saw the patient patient is pending neuro evaluation. Review of systems: Was done for constitutional, cardiovascular, GI, pulmonary. relevant finding as above Active Medications Aspirin (Aspirin) 81 mg PO DAILY [facility] Last Admin: 01/23/20 08:49 Dose: 81 mg Documented by: Atorvastatin Calcium (Lipitor) 20 mg PO HS [facility] Last Admin: 01/22/20 21:14 Dose: 20 mg Documented by: Cyanocobalamin (Vitamin B-12) 1,000 mcg IM DAILY [facility] Last Admin: 01/23/20 15:59 Dose: 1,000 mcg Documented by: Enoxaparin Sodium (Lovenox) 40 mg SQ DAILY [facility] Last Admin: 01/23/20 14:27 Dose: Not Given Documented by: Hydralazine HCl (Apresoline) 50 mg PO TID [facility] Last Admin: 01/23/20 17:30 Dose: 50 mg Documented by: Lisinopril (Zestril) 20 mg PO DAILY [facility] Last Admin: 01/23/20 08:49 Dose: 20 mg Documented by: Lorazepam (Ativan) 0.5 mg PO TID PRN PRN Reason: Anxiety Meclizine HCl (Antivert) 25 mg PO TID [facility] Last Admin: 01/23/20 17:30 Dose: 25 mg Documented by: Naloxone HCl (Narcan) 0.2 mg IV Q2M PRN PRN Reason: Opioid Reversal Nicotine (Habitrol 7mg/24hr Patch) 1 patch TRANSDERM DAILY [facility] Last Admin: 01/23/20 08:52 Dose: Not Given Documented by: Physical examination: VITAL SIGNS: 98.3, 76, 18, 87555, 97% on room air GENERAL: Sitting up in bed, comfortable EYES: Pupils equal. Conjunctiva normal. HEENT: External appearance of nose and ears normal, oral cavity grossly normal. NECK: JVD not raised; masses not palpable. HEART: First and second heart sounds are normal; no edema. LUNGS: Respiratory rate normal; decreased breath sounds. ABDOMEN: Soft, nontender, liver spleen not palpable, no masses palpable. PSYCH: Alert and oriented x3; mood and affect normal. NEUROLOGICAL: [Cranial nerves grossly intact; no facial asymmetry, left arm contracture INVESTIGATIONS, reviewed in the clinical context: Head MRI and neck MRA-nothing acute Brain MRI-nothing acute Carotid Doppler-no significant stenosis Previous testing White count 4.6 hemoglobin 12.3 platelets 146 potassium 4 creatinine 0.79 EKG tracing personally reviewed by me-no sinus rhythm Chest x-ray film personally reviewed by me-no obvious pulmonary abnormality Assessment: -Acute onset of dizziness-possible BPPV. Patient being followed by neurology. -Left arm paresis/contracture from prior stroke -Essential hypertension -Hyperlipidemia -COPD in a current smoker -Anxiety not otherwise specified -Chronic nicotine dependence patient's cigarette smoker Plan: Neurology is ordered to PTOT. Also 2-D echo. Care was discussed with the patient. Continue current medication treatment plan.
--- NOTE | 2020-01-23 19:58 | P.PN ---
Subjective Progress Note Date: 01/23/20 Principal diagnosis: ataxia Subjective: Patient continues to report difficulty walking and feeling off balance. Patient expresses anxiousness to go home. Patient seen by physical therapy today. Discussed recommendations. Physical therapist no does report patient would be a good candidate for rehab the patient is pushing to go home. Lab results discussed with patient of B12 deficiency and the need to start treatment. Objective - Vital Signs Vital signs: Vital Signs Temp 98.0 F 01/23/20 16:00 Pulse 80 01/23/20 16:00 Resp 18 01/23/20 16:00 BP 126/71 01/23/20 16:00 Pulse Ox 98 01/23/20 16:00 Intake & Output 01/23/20 01/23/20 01/24/20 06:59 18:59 06:59 Intake Total 450 960 Balance 450 960 Weight 62.5 kg Intake: IV 450 Sodium Chloride 0.9% 1, 450 000 ml @ 75 mls/hr IV . [id number] [facility] Rx#:[id number] Oral 960 Other: Voiding Method Toilet Toilet # Voids 1 - Exam objective: Patient examined chart reviewed. Platelets are decreased today 146 B12 level is low at 197. Examination: Neurological exam: Patient awake alert oriented 3. Speech fluent. Pupils 2 mm equally reactive to light and accommodation. Cranial nerve examination: Cranial nerves III through XII are intact. Motor examination unchanged from 420. Patient continues to have full strength in the right upper and lower extremity. There is severe dense hemiplegia of the left upper extremity with moderate hemiparesis of the left lower leg. Gait examination: Patient was examined with her gait. She does not require assistance to transfer from sitting to standing but she still is very unsteady. Her gait is wide-based and ataxic. She was unable to tandem gait walk on heels or toes. Sensory examination: Romberg positive - Labs CBC & Chem 7: 01/21/20 16:50 01/21/20 16:50 Labs: Abnormal Lab Results - Last 24 Hours (Table) 01/23/20 Range/Units 06:20 Vitamin B12 197.0 L (200.0-944.0) pg/mL Assessment and Plan (1) Acute ataxia Current Visit: Yes Status: Acute Code(s): R27.8 - OTHER LACK OF COORDINATION SNOMED Code(s): 86936594 Plan: assessment recommendations: This is a 66-year-old female who was admitted initially with a complaint of dizziness but on examination and history is confirmed this patient has more of an ataxic gait which is wide-based. She does not exhibit particular vertigo nausea vomiting or any other bulbar symptoms. This patient does have a significant past medical history for prior stroke which is left her with significant neurological deficits. The B12 level is low and would warrant appropriate management. Her overall neurological condition I'm recommending that we follow the protocol for B12 deficiency with thousand micrograms IM daily for 5 days then 100 mg by mouth thereafter. In addition vitamin E level should be obtained because often vitamin E deficiency can be associated with ataxia especially in the setting of other vitamin deficiencies. I discussed the case with physical therapy and still feel that this patient could be potential fall risk. If this patient did not have the neuro deficits from her stroke and just this wide-based gait due to B12 deficiency I would be m ore opted feel less likely for the patient to be unsafe. This patient falls onto her left side where she has no control over there is increased risk for her becoming hurt. Overall this patient will make the final decision whether she desires to go into acute rehab for several weeks or go home. Plan: 1. B12 1000 g IM now / continue daily 5 days. Patient should continue with oral B12 100 mg PO daily & monitored by her primary care physician. I've explained to the patient she will need to take B12 for life. 2. Patient can be prepared for discharge preferably to acute rehab. 3. Vitamin E level today. 4. Patient should be accommodated in her assisted to have a neurologist to foll ow her on a long-term basis especially with her neurological deficits. 5. Patient was counseled on lifestyle healthy living habits and being further evaluated as an outpatient for obstructive sleep apnea. 6. Patient was also counseled again on the importance of stopping being cigarette smoking. Would recommend discharging this patient home with a prescription for nicotine patch. Follow-up with primary care physician within one week. Thank you for this consultation. This patient may be discharged home with following recommendations above.
[2020-01-23] MEDS: ATORVASTATIN 20 MG TAB PO SCH (21:08)
[2020-01-24] MEDS: CYANOCOBALAMIN 1,000 MCG/ML 1 ML VIAL IM SCH (09:05)
[2020-01-24] MEDS: hydrALAZINE HCL 50 MG TAB PO SCH (09:05)
[2020-01-24] MEDS: MECLIZINE 25 MG TAB PO SCH (09:05)
[2020-01-24] MEDS: ASPIRIN 81 MG PO SCH (09:05)
[2020-01-24] MEDS: LISINOPRIL 20 MG TAB PO SCH (09:05)
[2020-01-24] MEDS: NICOTINE 7MG/24HR PATCH TRANSDERM SCH (09:06)
[2020-01-24] MEDS: ENOXAPARIN 40 MG/0.4 ML SYRINGE SQ SCH (09:06)
[2020-01-24 12:51] VITALS: PULSE 72
[2020-01-24 12:52] VITALS: BP 107/61; TEMP 98
--- NOTE | 2020-01-25 22:41 | CDI ---
Documentation Clarification Form Date: 01/26/2020 From: Juan Tomas Phone: If you have a question about this query, please contact Mora Terry, Injection Molding Supervisor at [phone] between 8am and 5pm. Admit Date: 01/23/2020 Discharge Date: 01/24/2020 Patient Name: Mora Cuadra Visit Number: [id number] ATTENTION: The Clinical Documentation Specialists (CDI) and [facility] Coding Staff appreciate your assistance in clarifying documentation. Please respond to the clarification below the line at the bottom and electronically sign. The CDI & [facility] Coding staff will review the response and follow-up if needed. Please note: Queries are made part of the Legal Health Record. If you have any questions, please contact the author of this message via ITS. Dear Natalio Jackson., The patients principal diagnosis has not been clearly identified and requires clarification. She presented with the 2 weeks of dizziness off and on. History/Risk factors: Stroke,hemiplegia, Hyperlipidemia. Radiology findings:Remote cerebrovascular accident. Treatment: B12 1000 g IM now / continue daily 5 days. Consults: Milagros Lanza MD 01/22 Per your note "Acute onset of dizziness-possible BPPV.Patient being followed by neurology". Per Neurologist "Her overall neurological condition I'm recommending that we follow the protocol for B12 deficiency with thousand micrograms IM daily for 5 days then 100 mg by mouth thereafter". In your professional opinion, can you please clarify which diagnosis, after study, accounted for the patients presenting symptoms and was the reason chiefly responsible for the admission? Dizziness Due to BPPV Dizzines due to B12 Deficiency Other ,Please Specify Dizziness due to possible B12 deficiency MTDD
== END 2020-01-24 16:20 | disposition home health service (06) | DRG 641 ==
LOC: EC 16:27 → 3SCARD 20:11 → OBSVTOIN 01-23 08:50
PROVIDERS: ADMIT Hospitalist; ATTEND Hospitalist
DX: E53.8 Deficiency of other specified B group vitamins (principal); I69.354 Hemiplegia and hemiparesis following cerebral infarction affecting left non-dominant side; H81.10 Benign paroxysmal vertigo, unspecified ear; E78.5 Hyperlipidemia, unspecified; F41.9 Anxiety disorder, unspecified; G47.30 Sleep apnea, unspecified; I10 Essential (primary) hypertension; F17.200 Nicotine dependence, unspecified, uncomplicated; R27.8 Other lack of coordination; J44.9 Chronic obstructive pulmonary disease, unspecified; Z79.82 Long term (current) use of aspirin; Z79.899 Other long term (current) drug therapy; Z80.0 Family history of malignant neoplasm of digestive organs; Z82.49 Family history of ischemic heart disease and other diseases of the circulatory system; Z91.81 History of falling; Z88.2 Allergy status to sulfonamides
CPT/HCPCS: 36415; 70450; 70544; 70547; 70551; 71046; 80053; 82607; 82746; 84425; 84446; 84484; 85025; 93005; 93880; 96374; 99285